=== PATIENT | male | born 1945 | race Caucasian/White ===

== ENCOUNTER 2019-06-08 14:07 | Emergency (ER) | payer MEDICARE ==
[~2019-06-08] VITALS: Ht 175.3 cm; Wt 78.6 kg
[2019-06-08 14:53] LABS: BASOPHILS % (AUTO) 0.3 % (0-1); EOSINOPHILS # (AUTO) 0.2 X10'3 (0-0.9); EOSINOPHILS % (AUTO) 3.5 % (0-6); HEMATOCRIT 39.3 % (42.0-52.0); HEMOGLOBIN 13.4 g/dl (14.0-17.9); LYMPHOCYTES # (AUTO) 0.7 X10'3 (1.1-4.8); LYMPHOCYTES % (AUTO) 13.5 % (21-51); MEAN CORPUSCULAR HEMOGLOBIN 31.2 PG (27.0-31.0); MEAN CORPUSCULAR HGB CONC 34.2 g/dL (33.0-36.5); MEAN CORPUSCULAR VOLUME 91.2 FL (78-98); MEAN PLATELET VOLUME 8.6 FL (7.4-10.4); MONOCYTES # (AUTO) 0.5 X10'3 (0-0.9); MONOCYTES % (AUTO) 10.3 % (2-12); NEUTROPHILS # (AUTO) 3.6 X10'3 (1.8-7.7); NEUTROPHILS % (AUTO) 72.4 % (42-75); PARTIAL THROMBOPLASTIN TIME 25 SECONDS (22-32); PLATELET COUNT 132 X10'3 (140-440); WHITE BLOOD COUNT 4.9 X10'3 (4.5-11.0)
[2019-06-08 14:59] LABS: ALANINE AMINOTRANSFERASE 27 U/L (12-78); ALBUMIN/GLOBULIN RATIO 1.4 (1.1-1.5); ALKALINE PHOSPHATASE 90 IU/L (46-116); ANION GAP 8 (8-16); ASPARTATE AMINO TRANSFERASE 24 U/L (10-37); BILIRUBIN,TOTAL 0.5 MG/DL (0.1-1.0); BLOOD UREA NITROGEN 17 MG/DL (7-18); BUN/CREATININE RATIO 11.6 (5.4-32.0); CALCIUM 8.8 MG/DL (8.5-10.1); CHLORIDE 107 MMOL/L (99-107); CREATININE 1.47 MG/DL (0.60-1.10); GLUCOSE 103 MG/DL (70-104); SODIUM 145 MMOL/L (135-145); TOTAL CARBON DIOXIDE 29.7 MMOL/L (24-32); TOTAL PROTEIN 6.9 G/DL (6.4-8.2); eGFR 47 ML/MIN
[2019-06-08 17:48] VITALS: BP 160/91
== END 2019-06-08 17:50 | disposition home or self-care (01) ==
LOC: ER 14:08
DX: R07.89 Other chest pain (principal); I10 Essential (primary) hypertension; Z95.0 Presence of cardiac pacemaker; Z88.8 Allergy status to other drugs, medicaments and biological substances
CPT/HCPCS: 36415; 71045; 80053; 84484; 85025; 85610; 85730; 93005; 99284

== ENCOUNTER 2023-04-01 11:05 | Day surgery (SDC) | payer MEDICARE ==
[~2023-04-01] VITALS: Ht 175.3 cm; Wt 77.1 kg
[2023-04-01] VITALS (7 sets, daily range): BP systolic 151–176; BP diastolic 60–86
[2023-04-01] MEDS ORDERED: normal saline 1000ml 1,000 ML IV SCH (11:30)
[2023-04-01] MEDS ORDERED: LORazepam 0.5 MG tablet PO ONE (11:30)
[2023-04-01] MEDS ORDERED: SPIR25TA5 PO (11:49)
[2023-04-01] MEDS ORDERED: PYRI60TA PO (11:49)
[2023-04-01] MEDS ORDERED: SACU1TAB7 PO (11:49)
[2023-04-01] MEDS ORDERED: FLO0.4C PO (11:49)
[2023-04-01] MEDS ORDERED: CHOL-4 PO (11:49)
[2023-04-01] MEDS ORDERED: ROSU20TA73 PO (11:49)
[2023-04-01] MEDS ORDERED: SERT-433 PO (11:49)
[2023-04-01] MEDS ORDERED: ADV50250 IH (11:49)
[2023-04-01] MEDS ORDERED: TERA5CAP4 PO (11:49)
[2023-04-01] MEDS ORDERED: PRED10TA PO (11:49)
[2023-04-01 12:23] LABS: BASOPHILS % (AUTO) 0.1 % (0-1); EOSINOPHILS # (AUTO) 0.1 X10'3 (0-0.9); EOSINOPHILS % (AUTO) 0.6 % (0-6); LYMPHOCYTES # (AUTO) 0.5 X10'3 (1.1-4.8); MEAN CORPUSCULAR HGB CONC 33.4 g/dL (33.0-36.5); MEAN CORPUSCULAR VOLUME 89.7 FL (78-98); MONOCYTES # (AUTO) 0.3 X10'3 (0-0.9); MONOCYTES % (AUTO) 4.4 % (2-12); NEUTROPHILS # (AUTO) 6.8 X10'3 (1.8-7.7); NEUTROPHILS % (AUTO) 87.9 % (42-75); PLATELET COUNT 108 X10'3 (140-440); RED BLOOD COUNT 4.02 X10'6 (4.70-6.10); RED CELL DISTRIBUTION WIDTH 14.2 % (11.5-14.5); WHITE BLOOD COUNT 7.7 X10'3 (4.5-11.0)
[2023-04-01] MEDS ORDERED: fentaNYL/PF 50MCG/1 ML 2ML syringe ONE (12:34)
[2023-04-01] MEDS ORDERED: LIDOcaine 1% 30ml preserv. free vial ONE (12:34)
[2023-04-01] MEDS ORDERED: iohexol 350MG/ML 100ml bottle IV ONE (12:34)
[2023-04-01] MEDS ORDERED: midazolam 1 mg/ML 2ml injection ONE ×2 (12:34→14:13)
[2023-04-01 12:37] LABS: ALBUMIN 3.8 G/DL (3.4-5.0); ANION GAP 13 (8-16); BLOOD UREA NITROGEN 42 MG/DL (7-18); BUN/CREATININE RATIO 18.4 (10.0-20.0); CALCIUM 8.9 MG/DL (8.5-10.1); CHLORIDE 107 MMOL/L (99-107); CREATININE 2.28 MG/DL (0.60-1.10); GLUCOSE 111 MG/DL (70-104); POTASSIUM 4.2 MMOL/L (3.5-5.1); SODIUM 145 MMOL/L (135-145); eGFR 28 ML/MIN
[2023-04-01] MEDS ORDERED: HYDROcodone/acetaminophen 10/325mg tab PO PRN (15:35)
[2023-04-01] MEDS ORDERED: HYDROcodone/acetaminophen 5mg/325mg tablet PO PRN (15:35)
[2023-04-02 06:33] LABS: ISTAT Hct MIX 32 %PCV (42-52); ISTAT O2 SATURATION MIX VENOUS 69 % (60-80); ISTAT SOURCE VEN
== END 2023-04-01 16:50 | disposition home or self-care (01) ==
LOC: SSTAY O 11:05
PROVIDERS: ATTEND Student in an Organized Health Care Education/Training Program
DX: I13.0 Hypertensive heart and chronic kidney disease with heart failure and stage 1 through stage 4 chronic kidney disease, or unspecified chronic kidney disease (principal); I50.22 Chronic systolic (congestive) heart failure; N18.30 Chronic kidney disease, stage 3 unspecified; I25.10 Atherosclerotic heart disease of native coronary artery without angina pectoris; G47.33 Obstructive sleep apnea (adult) (pediatric); I35.0 Nonrheumatic aortic (valve) stenosis; G70.00 Myasthenia gravis without (acute) exacerbation; E78.5 Hyperlipidemia, unspecified; Z79.899 Other long term (current) drug therapy; Z95.0 Presence of cardiac pacemaker
CPT/HCPCS: 33289; 36415; 76937; 80048; 85025; 85610; 99152; 99153; C2624; J1644; J2250; J3010; J3490; J7030; Q9967; 82803; 85014; 93005; A6258; A6402; C1751; C1769; C1894

== ENCOUNTER 2023-04-13 18:56 | Inpatient (IN) | payer MEDICARE ==
[~2023-04-13] VITALS: Ht 175.3 cm; Wt 77.2 kg
[~2023-04-13 18:56] MED LIST: ADV50250 IH; CHOL-4 PO; FLO0.4C PO; PRED10TA PO; PYRI60TA PO; ROSU20TA73 PO; SACU1TAB7 PO; SERT-433 PO; SPIR25TA5 PO; TERA5CAP4 PO
[2023-04-13] MEDS ORDERED: ASPI-1397 PO (21:08)
[2023-04-13] MEDS ORDERED: CLOP75TA34 PO (21:08)
[2023-04-13] MEDS ORDERED: cholecalciferol (vitamin D3) 1,000 unit (25mcg) tablet PO SCH (22:55)
[2023-04-13] MEDS: terazosin 5mg capsule PO SCH (23:13)
[2023-04-13] MEDS: ROSUVASTATIN CALCIUM 5 MG TABLET PO SCH (23:24)
[2023-04-14] MEDS ORDERED: potassium Cl 40MEQ/1/2NS 520ml 520 ML IV PRN (01:05)
[2023-04-14] MEDS ORDERED: mag hydrox/Alum hydrox/simeth 30ml oral suspension PO PRN (01:05)
[2023-04-14] MEDS ORDERED: magnesium hydroxide 30ml (MOM) UD suspension PO PRN (01:05)
[2023-04-14] MEDS ORDERED: acetaminophen 325mg tablet PO PRN (01:05)
[2023-04-14] MEDS ORDERED: ondansetron/PF 4mg/2ml inj IV PRN (01:05)
[2023-04-14] MEDS ORDERED: magnesium 4gm in 100ml NS 100 ML IV PRN (01:05)
[2023-04-14] MEDS ORDERED: potassium Cl 20 mEq SR tablet PO PRN (01:05)
[2023-04-14 03:20] LABS: BASOPHILS % (AUTO) 0 % (0-1); EOSINOPHILS % (AUTO) 0 % (0-6); HEMATOCRIT 32.8 % (42.0-52.0); LYMPHOCYTES # (AUTO) 0.3 X10'3 (1.1-4.8); LYMPHOCYTES % (AUTO) 2.3 % (21-51); MEAN CORPUSCULAR HEMOGLOBIN 30.1 PG (27.0-31.0); MEAN CORPUSCULAR HGB CONC 33.7 g/dL (33.0-36.5); MEAN CORPUSCULAR VOLUME 89.3 FL (78-98); MEAN PLATELET VOLUME 9.1 FL (7.4-10.4); MONOCYTES # (AUTO) 0.7 X10'3 (0-0.9); MONOCYTES % (AUTO) 4.9 % (2-12); NEUTROPHILS # (AUTO) 13.5 X10'3 (1.8-7.7); NEUTROPHILS % (AUTO) 92.8 % (42-75); PLATELET COUNT 111 X10'3 (140-440); RED BLOOD COUNT 3.67 X10'6 (4.70-6.10); RED CELL DISTRIBUTION WIDTH 14.1 % (11.5-14.5); WHITE BLOOD COUNT 14.5 X10'3 (4.5-11.0)
[2023-04-14 03:45] LABS: ALANINE AMINOTRANSFERASE 30 U/L (12-78); ALBUMIN 3.2 G/DL (3.4-5.0); ALBUMIN/GLOBULIN RATIO 1.1 (1.1-1.5); ALKALINE PHOSPHATASE 47 IU/L (46-116); ANION GAP 16 (8-16); ASPARTATE AMINO TRANSFERASE 25 U/L (10-37); BILIRUBIN,TOTAL 0.4 MG/DL (0.1-1.0); BLOOD UREA NITROGEN 58 MG/DL (7-18); BUN/CREATININE RATIO 15.7 (10.0-20.0); CHLORIDE 104 MMOL/L (99-107); CREATININE 3.69 MG/DL (0.60-1.10); GLUCOSE 104 MG/DL (70-104); MAGNESIUM 1.5 MG/DL (1.5-2.4); POTASSIUM 4.4 MMOL/L (3.5-5.1); SODIUM 137 MMOL/L (135-145); TOTAL CARBON DIOXIDE 17.4 MMOL/L (24-32); eGFR 16 ML/MIN
[2023-04-14 04:30] LABS: TOTAL CELLS COUNTED 100
[2023-04-14 04:31] LABS: ANISOCYTOSIS FEW; PLATELET ESTIMATE DECREASED; POIKILOCYTOSIS FEW
[2023-04-14 04:32] LABS: ELLIPTOCYTES 2+
--- NOTE | 2023-04-14 06:35 | NUR ---
Patient in room ED 6. I have received report from Scarlet in the ED and had the opportunity to ask questions and assume patient care.
--- NOTE | 2023-04-14 06:37 | NUR ---
Pt joseph area excoriated from frequent watery bowel movements. New order for placement of rectal tube.
--- NOTE | 2023-04-14 07:04 | NUR ---
Rectal tube inserted, tolerated well.
[2023-04-14] MEDS: K and/or MAG REPLACEMENT MC SCH ×2 (07:21→20:00)
[2023-04-14 07:30] VITALS: BP 133/54; PULSE 60; RESP 16; TEMP 98.1; O2SAT 97
[2023-04-14] MEDS ORDERED: methylPREDNISolone sod succ 125mg/2ml vial IV SCH (08:00)
[2023-04-14] MEDS ORDERED: docusate sod 100mg capsule PO SCH (08:00)
[2023-04-14 08:21] VITALS: RESP 16; O2SAT 95
[2023-04-14] MEDS: aspirin 81mg, enteric-coated 1 TAB TABLET.DR PO SCH (08:21)
[2023-04-14] MEDS: tamsulosin 0.4mg capsule PO SCH (08:21)
[2023-04-14] MEDS: cholecalciferol (vitamin D3) 1,000 unit (25mcg) tablet PO SCH (08:22)
[2023-04-14] MEDS: clopidogrel 75mg tablet PO SCH (08:22)
[2023-04-14] MEDS: sertraline 50mg tablet PO SCH (08:22)
[2023-04-14] MEDS: pyridostigmine br 60mg tablet PO SCH ×4 (09:14→20:10)
[2023-04-14] MEDS ORDERED: methylPREDNISolone sod succ/PF 40mg inj. IV ONE (09:15)
[2023-04-14] MEDS: sacubitril/valsartan 49mg-51mg tablet PO SCH ×2 (09:15→19:54)
[2023-04-14 10:00] VITALS: BP 143/56; PULSE 60; RESP 18; TEMP 97.8; O2SAT 98
[2023-04-14 12:29] LABS: C DIFF SPECIMEN=DIARRHEA? ACCEPTABLE; C DIFFICILE TOXINS A&B NEGATIVE (Neg)
[2023-04-14] MEDS: loperamide 2mg capsule PO PRN (16:34)
[2023-04-14 18:00] VITALS: BP 144/60; PULSE 62; RESP 16; TEMP 97.6; O2SAT 95
--- NOTE | 2023-04-14 18:16 | NUR ---
Problems reprioritized. Patient report given, questions answered & plan of care reviewed with
[2023-04-14] MEDS ORDERED: VANCOmycin 2,000MG in NS 500ml IV soln IV ONE (19:30)
[2023-04-14] MEDS ORDERED: vancomycin 1,750 MG in NS 350ml IV soln IV ONE (19:30)
[2023-04-14] MEDS ORDERED: vancomycin/NS 1 GM ADD-VANTAGE 250 ML IV PRN (19:35)
[2023-04-14] MEDS: sodium bicarbonate (8.4%) inj. 150 MEQ in dextrose 5%-water 1,000 ML IV SCH (19:45)
[2023-04-14] MEDS: piperacillin/tazo 3.375gm/50ml 50 ML IV SCH (19:48)
[2023-04-14] MEDS: methylPREDNISolone sod succ/PF 40mg inj. IV SCH (19:49)
[2023-04-14] MEDS: ROSUVASTATIN CALCIUM 5 MG TABLET PO SCH (19:54)
[2023-04-14] MEDS: terazosin 5mg capsule PO SCH (19:54)
[2023-04-14 20:00] VITALS: RESP 16; O2SAT 95
[2023-04-14 22:00] VITALS: BP 102/39; PULSE 63; RESP 16; TEMP 98; O2SAT 93
[2023-04-15 01:18] LABS: BASOPHILS % (AUTO) 0.4 % (0-1); EOSINOPHILS % (AUTO) 0 % (0-6); HEMATOCRIT 33.1 % (42.0-52.0); HEMOGLOBIN 11.4 g/dl (14.0-17.9); LYMPHOCYTES # (AUTO) 0.3 X10'3 (1.1-4.8); LYMPHOCYTES % (AUTO) 2.5 % (21-51); MEAN CORPUSCULAR HEMOGLOBIN 30.3 PG (27.0-31.0); MEAN CORPUSCULAR HGB CONC 34.4 g/dL (33.0-36.5); MEAN CORPUSCULAR VOLUME 88.1 FL (78-98); MEAN PLATELET VOLUME 8.8 FL (7.4-10.4); MONOCYTES # (AUTO) 0.1 X10'3 (0-0.9); MONOCYTES % (AUTO) 1.4 % (2-12); NEUTROPHILS # (AUTO) 9.9 X10'3 (1.8-7.7); NEUTROPHILS % (AUTO) 95.7 % (42-75); PLATELET COUNT 110 X10'3 (140-440); RED BLOOD COUNT 3.75 X10'6 (4.70-6.10); RED CELL DISTRIBUTION WIDTH 14.4 % (11.5-14.5); WHITE BLOOD COUNT 10.4 X10'3 (4.5-11.0)
[2023-04-15 01:24] LABS: ALANINE AMINOTRANSFERASE 30 U/L (12-78); ALBUMIN 3.2 G/DL (3.4-5.0); ALBUMIN/GLOBULIN RATIO 1.1 (1.1-1.5); ALKALINE PHOSPHATASE 48 IU/L (46-116); ANION GAP 17 (8-16); ASPARTATE AMINO TRANSFERASE 22 U/L (10-37); BILIRUBIN,TOTAL 0.4 MG/DL (0.1-1.0); BLOOD UREA NITROGEN 63 MG/DL (7-18); BUN/CREATININE RATIO 17.1 (10.0-20.0); C-REACTIVE PROTEIN 15.04 MG/DL (0.0-0.5); CALCIUM 8.1 MG/DL (8.5-10.1); CHLORIDE 104 MMOL/L (99-107); CREATININE 3.69 MG/DL (0.60-1.10); GLUCOSE 158 MG/DL (70-104); MAGNESIUM 1.8 MG/DL (1.5-2.4); POTASSIUM 3.5 MMOL/L (3.5-5.1); SODIUM 136 MMOL/L (135-145); TOTAL CARBON DIOXIDE 15.4 MMOL/L (24-32); TOTAL PROTEIN 6.1 G/DL (6.4-8.2); eGFR 16 ML/MIN
[2023-04-15] MEDS: piperacillin/tazo 3.375gm/50ml 50 ML IV SCH (03:53)
[2023-04-15 06:00] VITALS: BP 111/41; PULSE 58; RESP 16; TEMP 97.8; O2SAT 97
--- NOTE | 2023-04-15 06:38 | NUR ---
Problems reprioritized. Patient report given, questions answered & plan of care reviewed with COLLINS GONCALVES.
[2023-04-15] MEDS: methylPREDNISolone sod succ/PF 40mg inj. IV SCH ×2 (06:41→21:12)
--- NOTE | 2023-04-15 06:44 | NUR ---
Patient in room ORTHO 4008. I have received report from REJI Caceres and had the opportunity to ask questions and assume patient care.
[2023-04-15] MEDS: cholecalciferol (vitamin D3) 1,000 unit (25mcg) tablet PO SCH (07:30)
[2023-04-15] MEDS: pyridostigmine br 60mg tablet PO SCH ×4 (07:32→21:00)
[2023-04-15] MEDS: sertraline 50mg tablet PO SCH (07:32)
[2023-04-15] MEDS: aspirin 81mg, enteric-coated 1 TAB TABLET.DR PO SCH (07:32)
[2023-04-15] MEDS: clopidogrel 75mg tablet PO SCH (07:32)
[2023-04-15] MEDS: sacubitril/valsartan 49mg-51mg tablet PO SCH ×2 (07:32→21:14)
[2023-04-15] MEDS: tamsulosin 0.4mg capsule PO SCH (07:32)
[2023-04-15] MEDS: K and/or MAG REPLACEMENT MC SCH ×2 (07:34→20:00)
[2023-04-15 08:00] VITALS: RESP 16; O2SAT 97
[2023-04-15] MEDS: cefepime 1GM/NS ADD-VANTAGE 100 ML IV SCH (09:22)
[2023-04-15 09:57] LABS: CLARITY,URINE CLOUDY (Clear); COLOR,URINE STRAW (Yellow); GLUCOSE, URINE NEGATIVE (Neg); KETONES,URINE NEGATIVE (Neg); LEUKOCYTE ESTERASE ,URINE NEGATIVE (Neg); NITRITES, URINE NEGATIVE (Neg); OCCULT BLOOD,URINE TRACE-INTACT (Neg); PH,URINE 5.5 (4.8-8.0); PROTEIN,URINE TRACE mg/dl (Neg); UROBILINOGEN,URINE 0.2 E.U/dL (0.2-1.0)
[2023-04-15 10:11] LABS: UA COLLECTION TYPE URINAL
[2023-04-15 10:35] LABS: SQUAMOUS EPITHELIAL CELL,UR FEW /LPF (FEW)
[2023-04-15 10:37] LABS: AMORPHOUS URATES 1+
[2023-04-15 10:38] LABS: BACTERIA,URINE FEW /HPF (Neg); RBC,URINE 0-2 /HPF (0-2); WBC,URINE 0-4 /HPF (0-4)
[2023-04-15 11:00] VITALS: BP 124/36; PULSE 64; RESP 14; TEMP 97.8; O2SAT 99
[2023-04-15] MEDS: sodium bicarbonate (8.4%) inj. 150 MEQ in dextrose 5%-water 1,000 ML IV SCH ×2 (11:54→21:11)
[2023-04-15 18:00] VITALS: BP 156/59; PULSE 60; RESP 18; TEMP 98.8; O2SAT 97
--- NOTE | 2023-04-15 18:00 | NUR ---
I have reviewed and agree with the interventions, assessments, and documentation by COLLINS Hernandez.
--- NOTE | 2023-04-15 18:30 | NUR ---
Patient in room ORTHO 4008. I have received report from Mary GUADALUPE and had the opportunity to ask questions and assume patient care.
--- NOTE | 2023-04-15 18:49 | NUR ---
Problems reprioritized. Patient report given, questions answered & plan of care reviewed with REJI Camacho.
[2023-04-15 20:00] VITALS: RESP 16; O2SAT 97
[2023-04-15 20:17] LABS: TOTAL PROTEIN,URINE RANDOM 47.1 MG/DL
[2023-04-15 20:19] LABS: SODIUM,URINE RANDOM < 15 MEQ/L
[2023-04-15] MEDS: ROSUVASTATIN CALCIUM 5 MG TABLET PO SCH (21:15)
[2023-04-15] MEDS: terazosin 5mg capsule PO SCH (21:17)
--- NOTE | 2023-04-15 21:35 | NUR ---
Called MD for pain medication as still 06/24 to rectum and excoriated skin. New order for morphine 2mg IV q 4 hr.
[2023-04-15] MEDS: morphine 2 MG/ML inj. syringe IV PRN (21:43)
[2023-04-15 22:00] VITALS: BP 167/64; PULSE 61; RESP 16; TEMP 97.8; O2SAT 97
[2023-04-16] VITALS (7 sets, daily range): BP systolic 109–143; BP diastolic 54–74; PULSE 60–61; RESP 14–16; TEMP 97.4–97.6; O2SAT 97
[2023-04-16] MEDS: sodium bicarbonate (8.4%) inj. 150 MEQ in dextrose 5%-water 1,000 ML IV SCH (02:03)
[2023-04-16] MEDS: morphine 2 MG/ML inj. syringe IV PRN ×2 (02:22→10:38)
[2023-04-16 06:19] LABS: ALANINE AMINOTRANSFERASE 30 U/L (12-78); ALBUMIN 2.8 G/DL (3.4-5.0); ALBUMIN/GLOBULIN RATIO 1.2 (1.1-1.5); ALKALINE PHOSPHATASE 49 IU/L (46-116); ANION GAP 11 (8-16); ASPARTATE AMINO TRANSFERASE 30 U/L (10-37); BILIRUBIN,TOTAL 0.3 MG/DL (0.1-1.0); BLOOD UREA NITROGEN 63 MG/DL (7-18); BUN/CREATININE RATIO 20.7 (10.0-20.0); CALCIUM 7.5 MG/DL (8.5-10.1); CHLORIDE 103 MMOL/L (99-107); CREATININE 3.05 MG/DL (0.60-1.10); GLUCOSE 160 MG/DL (70-104); MAGNESIUM 1.7 MG/DL (1.5-2.4); SODIUM 137 MMOL/L (135-145); TOTAL CARBON DIOXIDE 23.3 MMOL/L (24-32); TOTAL PROTEIN 5.2 G/DL (6.4-8.2); VANCOMYCIN,RANDOM 16.9 UG/ML; eGFR 20 ML/MIN
[2023-04-16 06:32] LABS: BASOPHILS % (AUTO) 0.1 % (0-1); EOSINOPHILS % (AUTO) 0.1 % (0-6); HEMATOCRIT 31.9 % (42.0-52.0); LYMPHOCYTES # (AUTO) 0.2 X10'3 (1.1-4.8); LYMPHOCYTES % (AUTO) 2.5 % (21-51); MEAN CORPUSCULAR HEMOGLOBIN 29.9 PG (27.0-31.0); MEAN CORPUSCULAR HGB CONC 34.6 g/dL (33.0-36.5); MEAN CORPUSCULAR VOLUME 86.5 FL (78-98); MEAN PLATELET VOLUME 8.9 FL (7.4-10.4); MONOCYTES # (AUTO) 0.4 X10'3 (0-0.9); MONOCYTES % (AUTO) 5.1 % (2-12); NEUTROPHILS # (AUTO) 8.1 X10'3 (1.8-7.7); NEUTROPHILS % (AUTO) 92.2 % (42-75); PLATELET COUNT 98 X10'3 (140-440); RED BLOOD COUNT 3.69 X10'6 (4.70-6.10); RED CELL DISTRIBUTION WIDTH 13.7 % (11.5-14.5); WHITE BLOOD COUNT 8.7 X10'3 (4.5-11.0)
--- NOTE | 2023-04-16 06:46 | NUR ---
Called MD with critical K of 3.0. Protocol already in place and day nurse to start with replacement.
--- NOTE | 2023-04-16 06:48 | NUR ---
Problems reprioritized. Patient report given, questions answered & plan of care reviewed with Barbara GUADALUPE.
[2023-04-16 07:14] LABS: ANISOCYTOSIS 1+; ELLIPTOCYTES 2+; PLATELET ESTIMATE DECREASED; POIKILOCYTOSIS 1+
[2023-04-16] MEDS: K and/or MAG REPLACEMENT MC SCH ×2 (07:48→20:17)
[2023-04-16] MEDS: sertraline 50mg tablet PO SCH (07:53)
[2023-04-16] MEDS: cholecalciferol (vitamin D3) 1,000 unit (25mcg) tablet PO SCH (07:53)
[2023-04-16] MEDS: potassium Cl 20 mEq SR tablet PO PRN ×3 (07:54→17:56)
[2023-04-16] MEDS: clopidogrel 75mg tablet PO SCH (07:54)
[2023-04-16] MEDS: sacubitril/valsartan 49mg-51mg tablet PO SCH (07:54)
[2023-04-16] MEDS: aspirin 81mg, enteric-coated 1 TAB TABLET.DR PO SCH (07:54)
[2023-04-16] MEDS: tamsulosin 0.4mg capsule PO SCH (07:54)
[2023-04-16] MEDS: pyridostigmine br 60mg tablet PO SCH ×4 (07:55→20:25)
[2023-04-16] MEDS: methylPREDNISolone sod succ/PF 40mg inj. IV SCH ×2 (08:38→19:17)
[2023-04-16] MEDS: cefepime 1GM/NS ADD-VANTAGE 100 ML IV SCH (08:38)
[2023-04-16] MEDS ORDERED: vancomycin inj 500 MG in normal saline 100ml IV soln 100 ML IV SCH (10:00)
[2023-04-16] MEDS: loperamide 2mg capsule PO PRN ×2 (10:25→17:57)
[2023-04-16] MEDS ORDERED: POTASSIUM CL IV ONE ×3 (17:15)
[2023-04-16] MEDS ORDERED: [UNRECOGNIZED DRUG - OTHER] IV ONE ×3 (17:15)
[2023-04-16] MEDS ORDERED: SODIUM CHLORIDE 0.45% IV ONE ×3 (17:15)
[2023-04-16] MEDS ORDERED: WATER FOR INJECTION IV ONE ×3 (17:15)
--- NOTE | 2023-04-16 18:00 | NUR ---
I have reviewed and agree with interventions, assessments, and documentation by Barbara Bocanegra LVN.
[2023-04-16] MEDS: terazosin 5mg capsule PO SCH (20:22)
[2023-04-16] MEDS: metoclopramide 10mg tablet PO SCH (20:23)
[2023-04-16] MEDS: ROSUVASTATIN CALCIUM 5 MG TABLET PO SCH (20:23)
--- NOTE | 2023-04-16 22:35 | NUR ---
Patient in room ORTHO 4008. I have received report from kishore olivas and had the opportunity to ask questions and assume patient care.
--- NOTE | 2023-04-16 23:25 | NUR ---
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
--- NOTE | 2023-04-17 02:13 | NUR ---
Problems reprioritized. Patient report given, questions answered & plan of care reviewed with kayla olivas.
[2023-04-17 06:00] VITALS: BP 159/61; PULSE 58; RESP 16; TEMP 98.2; O2SAT 96
--- NOTE | 2023-04-17 06:20 | NUR ---
Patient in room ORTHO 4008. I have received report from Jelena MENDOZA and had the opportunity to ask questions and assume patient care.
--- NOTE | 2023-04-17 06:38 | NUR ---
Report to Sruthi No
[2023-04-17] MEDS: methylPREDNISolone sod succ/PF 40mg inj. IV SCH (07:58)
[2023-04-17 07:59] LABS: BASOPHILS % (AUTO) 0.2 % (0-1); EOSINOPHILS % (AUTO) 0.2 % (0-6); HEMATOCRIT 33.4 % (42.0-52.0); HEMOGLOBIN 11.3 g/dl (14.0-17.9); LYMPHOCYTES # (AUTO) 0.4 X10'3 (1.1-4.8); LYMPHOCYTES % (AUTO) 4.8 % (21-51); MEAN CORPUSCULAR HEMOGLOBIN 30.3 PG (27.0-31.0); MEAN CORPUSCULAR HGB CONC 33.9 g/dL (33.0-36.5); MEAN CORPUSCULAR VOLUME 89.5 FL (78-98); MEAN PLATELET VOLUME 9.2 FL (7.4-10.4); MONOCYTES # (AUTO) 0.6 X10'3 (0-0.9); NEUTROPHILS # (AUTO) 7.1 X10'3 (1.8-7.7); NEUTROPHILS % (AUTO) 87.8 % (42-75); PLATELET COUNT 110 X10'3 (140-440); RED BLOOD COUNT 3.74 X10'6 (4.70-6.10); RED CELL DISTRIBUTION WIDTH 13.8 % (11.5-14.5); WHITE BLOOD COUNT 8.1 X10'3 (4.5-11.0)
[2023-04-17 08:00] VITALS: RESP 16; O2SAT 96
[2023-04-17] MEDS: K and/or MAG REPLACEMENT MC SCH (08:00)
[2023-04-17 08:24] LABS: ALANINE AMINOTRANSFERASE 28 U/L (12-78); ALBUMIN 2.7 G/DL (3.4-5.0); ALBUMIN/GLOBULIN RATIO 1.1 (1.1-1.5); ALKALINE PHOSPHATASE 53 IU/L (46-116); ANION GAP 9 (8-16); ASPARTATE AMINO TRANSFERASE 26 U/L (10-37); BILIRUBIN,TOTAL 0.4 MG/DL (0.1-1.0); BLOOD UREA NITROGEN 52 MG/DL (7-18); BUN/CREATININE RATIO 22.4 (10.0-20.0); CALCIUM 7.6 MG/DL (8.5-10.1); CHLORIDE 106 MMOL/L (99-107); CREATININE 2.32 MG/DL (0.60-1.10); GLUCOSE 133 MG/DL (70-104); MAGNESIUM 1.8 MG/DL (1.5-2.4); POTASSIUM 5.2 MMOL/L (3.5-5.1); SODIUM 140 MMOL/L (135-145); TOTAL CARBON DIOXIDE 25.1 MMOL/L (24-32); TOTAL PROTEIN 5.2 G/DL (6.4-8.2); eGFR 27 ML/MIN
[2023-04-17] MEDS: cholecalciferol (vitamin D3) 1,000 unit (25mcg) tablet PO SCH (08:50)
[2023-04-17] MEDS: sertraline 50mg tablet PO SCH (08:50)
[2023-04-17] MEDS: tamsulosin 0.4mg capsule PO SCH (08:52)
[2023-04-17] MEDS: aspirin 81mg, enteric-coated 1 TAB TABLET.DR PO SCH (08:52)
[2023-04-17] MEDS: metoclopramide 10mg tablet PO SCH (08:52)
[2023-04-17] MEDS: clopidogrel 75mg tablet PO SCH (08:52)
[2023-04-17] MEDS: pyridostigmine br 60mg tablet PO SCH ×2 (08:57→11:56)
--- NOTE | 2023-04-17 09:52 | NUR ---
Dr. Castillo seen patient and stated that he is needing a follow up appt at the office in 1-2 months and CMET/CBC [id number] until appt. I called the office and spoke with his JULIA Bliss. She scheduled patient with [employer]LE[employer] TECHNICAL OPERATOR for 06/11/23 @9:00 check in @ 8:45. Patient lab order sent to [facility] Matos in [place].
[2023-04-17] MEDS: loperamide 2mg capsule PO PRN (11:54)
--- NOTE | 2023-04-17 13:00 | NUR ---
Patient discharged today. All discharged papers were explained and questions were answered. Patient IV removed by RN. All belongings were gathered and patient dressed. Patient was alert and appropriate for discharge. Patient was wheeled downstairs and into private vehicle.
--- NOTE | 2023-04-17 15:35 | NUR ---
DIRECTOR SPECIALTY documentation: I have reviewed and agree with all interventions, assessments performed and documented by Sruthi Rollins LVN .
[2023-04-19] MEDS ORDERED: VANCOMYCIN LEVEL IV ONE (09:30)
== END 2023-04-17 13:40 | disposition home or self-care (01) | DRG 56 ==
LOC: ER 18:57 → ED HOLD 04-14 01:10 → ORTHO 4S 04-14 07:31
PROVIDERS: ADMIT Family Medicine; ATTEND Family Medicine
DX: G70.01 Myasthenia gravis with (acute) exacerbation (principal); G93.41 Metabolic encephalopathy; N18.4 Chronic kidney disease, stage 4 (severe); E87.20 Acidosis, unspecified; I13.0 Hypertensive heart and chronic kidney disease with heart failure and stage 1 through stage 4 chronic kidney disease, or unspecified chronic kidney disease; I50.22 Chronic systolic (congestive) heart failure; R47.01 Aphasia; K52.1 Toxic gastroenteritis and colitis; N17.9 Acute kidney failure, unspecified; Z20.822 Contact with and (suspected) exposure to COVID-19; D72.825 Bandemia; D72.823 Leukemoid reaction; D72.829 Elevated white blood cell count, unspecified; E87.5 Hyperkalemia; N26.1 Atrophy of kidney (terminal); T44.0X5A Adverse effect of anticholinesterase agents, initial encounter; E86.0 Dehydration; Z79.51 Long term (current) use of inhaled steroids; Z79.82 Long term (current) use of aspirin; Y92.89 Other specified places as the place of occurrence of the external cause; Z95.0 Presence of cardiac pacemaker; Z79.899 Other long term (current) drug therapy
CPT/HCPCS: 36415; 70551; 76770; 80053; 80202; 81001; 82570; 83605; 83735; 84133; 84145; 84156; 84300; 84540; 85007; 85008; 85025; 86140; 87040; 87045; 87046; 87081; 87324; 87449; 87811; 92508; 92616; 97161; 97530; 97535; 99285; A4349; A6250; G0378; J0692; J2270; J2405; J2543; J2920; J3370; J3480; J3490; J7040; J7070

== ENCOUNTER 2024-10-28 04:43 | Inpatient (IN) | payer MEDICARE ==
[~2024-10-28] VITALS: Ht 175.3 cm; Wt 81.5 kg
[2024-10-28] VITALS (19 sets, daily range): BP systolic 93–182; BP diastolic 52–81; PULSE 74–103; RESP 15–21; O2SAT 94–100
[~2024-10-28 04:43] MED LIST changes: -ADV50250 IH; +ASPI-1397 PO; +CLOP75TA34 PO; +FLUT1BLS7 IH; -ROSU20TA73 PO; +ROSU20TA98 PO; -SPIR25TA5 PO
[2024-10-28] MEDS ORDERED: FURO-150 PO (05:30)
[2024-10-28] MEDS ORDERED: ERGO400C PO (05:30)
[2024-10-28] MEDS ORDERED: ATOR40TA PO (05:30)
[2024-10-28] MEDS ORDERED: SERT25TA PO (05:30)
[2024-10-28] MEDS ORDERED: EMPA10TA PO (05:30)
[2024-10-28] MEDS ORDERED: METO-395 PO (05:30)
[2024-10-28] MEDS ORDERED: LOSA-415 PO (05:30)
[2024-10-28] MEDS: HYDROmorphone inj. 0.5 MG/0.5 ML DISP.SYRIN IV ONE (05:41)
[2024-10-28 06:02] LABS: BASOPHILS % (AUTO) 0.1 % (0-1); EOSINOPHILS % (AUTO) 0.3 % (0-6); HEMATOCRIT 31.2 % (42.0-52.0); HEMOGLOBIN 10.7 g/dl (14.0-17.9); LYMPHOCYTES # (AUTO) 0.6 X10'3 (1.1-4.8); LYMPHOCYTES % (AUTO) 4.7 % (21-51); MEAN CORPUSCULAR HEMOGLOBIN 29.6 PG (27.0-31.0); MEAN CORPUSCULAR HGB CONC 34.3 g/dL (33.0-36.5); MEAN CORPUSCULAR VOLUME 86.5 FL (78-98); MONOCYTES # (AUTO) 0.6 X10'3 (0-0.9); MONOCYTES % (AUTO) 4.6 % (2-12); NEUTROPHILS # (AUTO) 11.3 X10'3 (1.8-7.7); NEUTROPHILS % (AUTO) 90.3 % (42-75); PLATELET COUNT 159 X10'3 (140-440); RED BLOOD COUNT 3.61 X10'6 (4.70-6.10); RED CELL DISTRIBUTION WIDTH 14.9 % (11.5-14.5); WHITE BLOOD COUNT 12.5 X10'3 (4.5-11.0)
[2024-10-28 06:05] LABS: BILIRUBIN,URINE NEGATIVE (Neg); CLARITY,URINE CLEAR (Clear); COLOR,URINE YELLOW (Yellow); GLUCOSE, URINE >=1000 mg/dl (Neg); KETONES,URINE NEGATIVE (Neg); LEUKOCYTE ESTERASE ,URINE NEGATIVE (Neg); NITRITES, URINE NEGATIVE (Neg); OCCULT BLOOD,URINE NEGATIVE (Neg); PROTEIN,URINE 30 mg/dl (Neg); UROBILINOGEN,URINE 0.2 E.U/dL (0.2-1.0)
[2024-10-28 06:10] LABS: ALBUMIN 2.9 G/DL (3.4-5.0); ANION GAP 8 (8-16); BLOOD UREA NITROGEN 22 MG/DL (7-18); BUN/CREATININE RATIO 11.2 (10.0-20.0); CALCIUM 7.8 MG/DL (8.5-10.1); CHLORIDE 109 MMOL/L (99-107); CREATININE 1.96 MG/DL (0.60-1.10); GLUCOSE 144 MG/DL (70-104); POTASSIUM 3.3 MMOL/L (3.5-5.1); SODIUM 143 MMOL/L (135-145); eCRCL 30 ML/MIN; eGFR 33 ML/MIN
[2024-10-28 06:11] LABS: UA COLLECTION TYPE CLN CATCH MIDSTREAM
[2024-10-28 06:12] LABS: BACTERIA,URINE 2+ /HPF (Neg); RBC,URINE 0-2 /HPF (0-2); SQUAMOUS EPITHELIAL CELL,UR FEW /LPF (FEW); WBC,URINE 0-4 /HPF (0-4)
[2024-10-28] MEDS ORDERED: ondansetron/PF 4mg/2ml inj IV PRN ×3 (08:10→17:00)
[2024-10-28] MEDS ORDERED: potassium Cl 20 mEq SR tablet PO PRN ×2 (08:10)
[2024-10-28] MEDS ORDERED: mag hydrox/Alum hydrox/simeth 30ml oral suspension PO PRN (08:10)
[2024-10-28] MEDS ORDERED: magnesium Cl slow-release 64mg tablet PO PRN (08:10)
[2024-10-28] MEDS ORDERED: magnesium sulf-water 4G/100mL 100 ML IV PRN (08:10)
[2024-10-28] MEDS ORDERED: acetaminophen 325mg tablet PO PRN (08:10)
[2024-10-28] MEDS ORDERED: potassium Cl 40MEQ/1/2NS 520ml 520 ML IV PRN (08:10)
[2024-10-28 09:12] LABS: MAGNESIUM 1.6 MG/DL (1.5-2.4); POTASSIUM 3.6 MMOL/L (3.5-5.1)
[2024-10-28] MEDS: normal saline 1000ml 1,000 ML IV SCH (09:38)
[2024-10-28 09:51] LABS: FREE T4 (FREE THYROXINE) 0.82 NG/DL (0.73-1.40); THYROID STIMULATING HORMONE 2.37 ulU/ml (0.34-4.50)
[2024-10-28 10:25] LABS: HEMOGLOBIN A1C 6.1 % (4.5-6.2)
[2024-10-28] MEDS ORDERED: LOSA50TA64 PO (11:09)
[2024-10-28] MEDS ORDERED: LOSA100T58 PO (11:09)
[2024-10-28] MEDS ORDERED: METO-411 PO (11:09)
[2024-10-28] MEDS ORDERED: ALBU8HFA INH (11:11)
[2024-10-28] MEDS: HYDROmorphone inj. 0.5 MG/0.5 ML DISP.SYRIN IV PRN (11:25)
[2024-10-28] MEDS: INSULIN LISPRO 100 UNIT/ML INSULN.PEN MULTI-DOSE SQ SCH (12:00)
[2024-10-28] MEDS ORDERED: proCHLORperazine 10 MG/2 ml inj IV PRN (13:50)
[2024-10-28] MEDS ORDERED: meperidine/PF 25mg/ml syringe IV PRN ×3 (13:50)
[2024-10-28] MEDS ORDERED: morphine 4 MG/ML inj SYRINge IV PRN (13:50)
[2024-10-28] MEDS ORDERED: fentaNYL /PF 50mcg/ml 5ml ampule ONE (14:32)
[2024-10-28] MEDS ORDERED: midazolam 1 mg/ML 2ml injection ONE (14:32)
[2024-10-28] MEDS ORDERED: propofol inj 20 ML IV ONE (14:32)
[2024-10-28] MEDS ORDERED: rocuronium 10mg/ml inj IV ONE (14:32)
[2024-10-28] MEDS ORDERED: sevoflurane 250ml liquid IH ONE (14:46)
[2024-10-28] MEDS ORDERED: ceFOXitin 1000 MG inj ONE ×2 (15:54)
[2024-10-28] MEDS ORDERED: BUPIVAcaine 2.5mg/ml inj 50ml vial (contains preservative) ONE (16:33)
[2024-10-28] MEDS ORDERED: BUPIVACAINE liposomal/PF 13.3 MG/ML 10mL vial IM ONE (16:34)
[2024-10-28] MEDS ORDERED: neostigmine methylsulfate 1 MG/ML 10ml vial ONE (17:00)
[2024-10-28] MEDS ORDERED: naloxone 0.4 mg/ml inj IV PRN (17:00)
[2024-10-28] MEDS ORDERED: glycopyrrolate 0.2mg/ml inj ONE (17:00)
[2024-10-28] MEDS ORDERED: sugammadex 200mg/2ml injection IV ONE (17:13)
[2024-10-28] MEDS ORDERED: meperidine/PF 100mg/ml syringe IV PRN ×2 (18:17→18:18)
[2024-10-28] MEDS: meperidine/PF 100mg/ml syringe IV PRN (18:45)
[2024-10-28] MEDS: ringers solution, lacted 1,000 ML IV SCH (19:29)
[2024-10-28] MEDS: piperacillin/tazo 3.375gm/50ml 50 ML IV SCH (19:31)
[2024-10-28 19:55] LABS: BASOPHILS % (AUTO) 0.2 % (0-1); EOSINOPHILS % (AUTO) 0.5 % (0-6); HEMATOCRIT 29.5 % (42.0-52.0); HEMOGLOBIN 10.1 g/dl (14.0-17.9); LYMPHOCYTES # (AUTO) 0.5 X10'3 (1.1-4.8); LYMPHOCYTES % (AUTO) 4.8 % (21-51); MEAN CORPUSCULAR HEMOGLOBIN 29.6 PG (27.0-31.0); MEAN CORPUSCULAR HGB CONC 34.4 g/dL (33.0-36.5); MEAN CORPUSCULAR VOLUME 86.3 FL (78-98); MEAN PLATELET VOLUME 7.9 FL (7.4-10.4); MONOCYTES # (AUTO) 0.3 X10'3 (0-0.9); MONOCYTES % (AUTO) 3.5 % (2-12); NEUTROPHILS # (AUTO) 8.9 X10'3 (1.8-7.7); PLATELET COUNT 158 X10'3 (140-440); RED BLOOD COUNT 3.42 X10'6 (4.70-6.10); RED CELL DISTRIBUTION WIDTH 14.9 % (11.5-14.5); WHITE BLOOD COUNT 9.8 X10'3 (4.5-11.0)
[2024-10-28] MEDS: K and/or MAG REPLACEMENT MC SCH (20:00)
[2024-10-28 20:22] LABS: ALANINE AMINOTRANSFERASE 20 U/L (12-78); ALBUMIN 2.4 G/DL (3.4-5.0); ALBUMIN/GLOBULIN RATIO 0.9 (1.1-1.5); ALKALINE PHOSPHATASE 54 IU/L (46-116); ANION GAP 7 (8-16); ASPARTATE AMINO TRANSFERASE 19 U/L (10-37); BILIRUBIN,TOTAL 0.6 MG/DL (0.1-1.0); BLOOD UREA NITROGEN 21 MG/DL (7-18); BUN/CREATININE RATIO 10.7 (10.0-20.0); CALCIUM 7.5 MG/DL (8.5-10.1); CHLORIDE 110 MMOL/L (99-107); CREATININE 1.96 MG/DL (0.60-1.10); GLUCOSE 116 MG/DL (70-104); MAGNESIUM 1.3 MG/DL (1.5-2.4); POTASSIUM 3.2 MMOL/L (3.5-5.1); SODIUM 142 MMOL/L (135-145); TOTAL CARBON DIOXIDE 24.7 MMOL/L (24-32); TOTAL PROTEIN 5.2 G/DL (6.4-8.2); eCRCL 30 ML/MIN; eGFR 33 ML/MIN
[2024-10-28] MEDS: morphine 2 MG/ML inj. syringe IV PRN (20:28)
[2024-10-28] MEDS: hydrALAZINE 20mg/ml inj. IV PRN (20:53)
[2024-10-28] MEDS: insulin glargine (Lantus) pen - multi-dose SQ SCH (21:00)
[2024-10-28] MEDS: acetaminophen 325mg tablet PO PRN (21:23)
[2024-10-28] MEDS: potassium Cl 40MEQ/270ML bag 270 ML IV PRN (21:23)
[2024-10-28] MEDS: magnesium sulf-water 2g/50mL 50 ML IV PRN (23:44)
[2024-10-29] VITALS (25 sets, daily range): BP systolic 105–153; BP diastolic 35–62; PULSE 60–79; RESP 9–18; O2SAT 89–99
[2024-10-29] MEDS: morphine 2 MG/ML inj. syringe IV PRN (01:11)
[2024-10-29] MEDS: pantoprazole 40 MG vial IV ONE (03:17)
[2024-10-29 04:22] LABS: BASOPHILS % (AUTO) 0.1 % (0-1); EOSINOPHILS % (AUTO) 0.2 % (0-6); HEMATOCRIT 29.7 % (42.0-52.0); LYMPHOCYTES # (AUTO) 0.6 X10'3 (1.1-4.8); LYMPHOCYTES % (AUTO) 3.9 % (21-51); MEAN CORPUSCULAR HEMOGLOBIN 29.4 PG (27.0-31.0); MEAN CORPUSCULAR HGB CONC 33.8 g/dL (33.0-36.5); MEAN CORPUSCULAR VOLUME 87.1 FL (78-98); MEAN PLATELET VOLUME 8.3 FL (7.4-10.4); MONOCYTES # (AUTO) 0.7 X10'3 (0-0.9); MONOCYTES % (AUTO) 4.5 % (2-12); NEUTROPHILS # (AUTO) 13.6 X10'3 (1.8-7.7); NEUTROPHILS % (AUTO) 91.3 % (42-75); PLATELET COUNT 168 X10'3 (140-440); RED BLOOD COUNT 3.41 X10'6 (4.70-6.10); RED CELL DISTRIBUTION WIDTH 15.1 % (11.5-14.5); WHITE BLOOD COUNT 14.9 X10'3 (4.5-11.0)
[2024-10-29 04:30] LABS: ALBUMIN 2.4 G/DL (3.4-5.0); ANION GAP 9 (8-16); BLOOD UREA NITROGEN 21 MG/DL (7-18); BUN/CREATININE RATIO 11.4 (10.0-20.0); CALCIUM 7.8 MG/DL (8.5-10.1); CHLORIDE 113 MMOL/L (99-107); CREATININE 1.84 MG/DL (0.60-1.10); GLUCOSE 94 MG/DL (70-104); MAGNESIUM 2.3 MG/DL (1.5-2.4); POTASSIUM 3.8 MMOL/L (3.5-5.1); SODIUM 147 MMOL/L (135-145); TOTAL CARBON DIOXIDE 25.4 MMOL/L (24-32); eCRCL 32 ML/MIN; eGFR 36 ML/MIN
[2024-10-29] MEDS: pantoprazole 40 MG vial IV SCH (07:41)
[2024-10-29] MEDS: PCA WASTE DOCUMENTATION 1 MG ML MC SCH (11:20)
[2024-10-29] MEDS ORDERED: naloxone 0.4 mg/ml inj IV PRN (11:20)
[2024-10-29] MEDS: HYDROmorph/NS 0.2 mg/ml PCA 100 ML IV SCH (11:58)
[2024-10-29] MEDS ORDERED: polyvinyl alcohol eye drops 15ML BOTTLE EACHEYE PRN (14:45)
[2024-10-30] VITALS (20 sets, daily range): BP systolic 144–187; BP diastolic 42–83; PULSE 64–92; RESP 9–24; TEMP 97.2–98; O2SAT 93–98
[2024-10-30 02:45] LABS: BASOPHILS % (AUTO) 0.1 % (0-1); EOSINOPHILS # (AUTO) 0.1 X10'3 (0-0.9); EOSINOPHILS % (AUTO) 1.1 % (0-6); HEMOGLOBIN 9.2 g/dl (14.0-17.9); LYMPHOCYTES # (AUTO) 0.4 X10'3 (1.1-4.8); LYMPHOCYTES % (AUTO) 4.1 % (21-51); MEAN CORPUSCULAR HEMOGLOBIN 29.1 PG (27.0-31.0); MEAN CORPUSCULAR HGB CONC 32.9 g/dL (33.0-36.5); MEAN CORPUSCULAR VOLUME 88.4 FL (78-98); MONOCYTES # (AUTO) 0.5 X10'3 (0-0.9); MONOCYTES % (AUTO) 4.9 % (2-12); NEUTROPHILS # (AUTO) 9.7 X10'3 (1.8-7.7); NEUTROPHILS % (AUTO) 89.8 % (42-75); PLATELET COUNT 129 X10'3 (140-440); RED BLOOD COUNT 3.17 X10'6 (4.70-6.10); RED CELL DISTRIBUTION WIDTH 15.9 % (11.5-14.5); WHITE BLOOD COUNT 10.9 X10'3 (4.5-11.0)
[2024-10-30 02:52] LABS: ALBUMIN 2.1 G/DL (3.4-5.0); ANION GAP 8 (8-16); BLOOD UREA NITROGEN 25 MG/DL (7-18); BUN/CREATININE RATIO 11.2 (10.0-20.0); CALCIUM 8.2 MG/DL (8.5-10.1); CHLORIDE 114 MMOL/L (99-107); CREATININE 2.24 MG/DL (0.60-1.10); GLUCOSE 93 MG/DL (70-104); MAGNESIUM 2.1 MG/DL (1.5-2.4); POTASSIUM 3.8 MMOL/L (3.5-5.1); SODIUM 146 MMOL/L (135-145); TOTAL CARBON DIOXIDE 23.7 MMOL/L (24-32); eCRCL 26 ML/MIN; eGFR 28 ML/MIN
[2024-10-30] MEDS: HYDROmorph/NS 0.2 mg/ml PCA 100 ML IV SCH (03:00)
[2024-10-30] MEDS ORDERED: ipratropium/albuterol 3ml nebule NEB PRN (23:10)
[2024-10-30 23:28] LABS: POTASSIUM 3.7 MMOL/L (3.5-5.1)
[2024-10-31] VITALS (13 sets, daily range): BP systolic 119–160; BP diastolic 54–84; PULSE 57–104; RESP 18–24; TEMP 97.7–98.2; O2SAT 95–100
[2024-10-31] MEDS ORDERED: potassium Cl 40MEQ/270ML bag 250 ML IV PRN (00:35)
[2024-10-31] MEDS ORDERED: magnesium sulf-water 2g/50mL 50 ML IV PRN (00:35)
[2024-10-31] MEDS ORDERED: potassium Cl 20 mEq SR tablet PO PRN (00:35)
[2024-10-31] MEDS ORDERED: magnesium sulf-water 4G/100mL 100 ML IV PRN (00:35)
[2024-10-31] MEDS ORDERED: potassium Cl 20mEq/100mL bag 100 ML IV PRN (00:35)
[2024-10-31] MEDS: potassium Cl 40MEQ/1/2NS 520ml 520 ML IV PRN (02:41)
[2024-10-31 02:51] LABS: ALBUMIN 2.2 G/DL (3.4-5.0); ANION GAP 12 (8-16); BLOOD UREA NITROGEN 29 MG/DL (7-18); BUN/CREATININE RATIO 11.9 (10.0-20.0); CALCIUM 8.8 MG/DL (8.5-10.1); CHLORIDE 117 MMOL/L (99-107); CREATININE 2.43 MG/DL (0.60-1.10); GLUCOSE 82 MG/DL (70-104); MAGNESIUM 2.1 MG/DL (1.5-2.4); POTASSIUM 3.6 MMOL/L (3.5-5.1); SODIUM 151 MMOL/L (135-145); TOTAL CARBON DIOXIDE 21.6 MMOL/L (24-32); eCRCL 24 ML/MIN; eGFR 26 ML/MIN
[2024-10-31] MEDS: ipratropium/albuterol 3ml nebule NEB SCH (03:11)
[2024-10-31] MEDS: EMPAGLIFLOZIN 10 MG TABLET PO SCH (08:50)
[2024-10-31] MEDS: aspirin 81mg, enteric-coated 1 TAB TABLET.DR PO SCH (08:50)
[2024-10-31] MEDS: furosemide 20 MG/2 ML vial IV SCH (09:06)
[2024-10-31 12:32] LABS: BASOPHILS % (AUTO) 0.1 % (0-1); EOSINOPHILS # (AUTO) 0.1 X10'3 (0-0.9); EOSINOPHILS % (AUTO) 0.7 % (0-6); HEMATOCRIT 27.7 % (42.0-52.0); HEMOGLOBIN 9.6 g/dl (14.0-17.9); LYMPHOCYTES # (AUTO) 0.2 X10'3 (1.1-4.8); LYMPHOCYTES % (AUTO) 2.5 % (21-51); MEAN CORPUSCULAR HEMOGLOBIN 30.2 PG (27.0-31.0); MEAN CORPUSCULAR HGB CONC 34.7 g/dL (33.0-36.5); MEAN CORPUSCULAR VOLUME 87.1 FL (78-98); MEAN PLATELET VOLUME 8.1 FL (7.4-10.4); MONOCYTES # (AUTO) 0.5 X10'3 (0-0.9); MONOCYTES % (AUTO) 5.3 % (2-12); NEUTROPHILS # (AUTO) 8.8 X10'3 (1.8-7.7); NEUTROPHILS % (AUTO) 91.4 % (42-75); PLATELET COUNT 167 X10'3 (140-440); RED BLOOD COUNT 3.18 X10'6 (4.70-6.10); RED CELL DISTRIBUTION WIDTH 15.7 % (11.5-14.5); WHITE BLOOD COUNT 9.7 X10'3 (4.5-11.0)
[2024-10-31] MEDS: PERFLUTREN PROTEIN-A MICROSPHR (Optison) 0.22 MG/ML 3ML VIAL IV ONE (12:43)
[2024-10-31] MEDS: dextrose 5%-lactated ringers 1,000 ML IV SCH (12:45)
[2024-10-31] MEDS ORDERED: albuterol 2.5 MG/3 ML nebule NEB PRN (13:15)
[2024-10-31] MEDS: potassium CL 10mEq/100ml bag 100 ML IV PRN (13:45)
[2024-10-31] MEDS: pyridostigmine br 60mg tablet PO SCH (13:50)
[2024-10-31] MEDS: HYDROcodone/acetaminophen 10/325mg tab PO PRN (16:48)
[2024-10-31] MEDS: terazosin 5mg capsule PO SCH (23:26)
[2024-10-31] MEDS: metoprolol tartrate 25mg tablet PO SCH (23:27)
[2024-11-01] VITALS (9 sets, daily range): BP systolic 129–167; BP diastolic 45–75; PULSE 12–84; RESP 16–21; TEMP 96.5–98.3; O2SAT 94–98
[2024-11-01 01:30] LABS: CREATININE 2.82 MG/DL (0.60-1.10); SODIUM 146 MMOL/L (135-145); eCRCL 21 ML/MIN; eGFR 22 ML/MIN
[2024-11-01 01:31] LABS: POTASSIUM 2.9 MMOL/L (3.5-5.1)
[2024-11-01 07:31] LABS: BASOPHILS % (AUTO) 0.1 % (0-1); EOSINOPHILS # (AUTO) 0.2 X10'3 (0-0.9); EOSINOPHILS % (AUTO) 3.8 % (0-6); HEMATOCRIT 24.8 % (42.0-52.0); HEMOGLOBIN 8.2 g/dl (14.0-17.9); LYMPHOCYTES # (AUTO) 0.3 X10'3 (1.1-4.8); LYMPHOCYTES % (AUTO) 6.9 % (21-51); MEAN CORPUSCULAR HEMOGLOBIN 28.8 PG (27.0-31.0); MEAN CORPUSCULAR HGB CONC 33.2 g/dL (33.0-36.5); MEAN CORPUSCULAR VOLUME 86.7 FL (78-98); MEAN PLATELET VOLUME 7.6 FL (7.4-10.4); MONOCYTES # (AUTO) 0.3 X10'3 (0-0.9); MONOCYTES % (AUTO) 6.6 % (2-12); NEUTROPHILS # (AUTO) 3.5 X10'3 (1.8-7.7); NEUTROPHILS % (AUTO) 82.6 % (42-75); PLATELET COUNT 126 X10'3 (140-440); RED BLOOD COUNT 2.85 X10'6 (4.70-6.10); RED CELL DISTRIBUTION WIDTH 15.7 % (11.5-14.5); WHITE BLOOD COUNT 4.2 X10'3 (4.5-11.0)
[2024-11-01] MEDS ORDERED: metoprolol succinate 25mg (24-HOUR) SR. Tablet PO SCH (08:00)
[2024-11-01] MEDS ORDERED: losartan 50mg tablet PO SCH (08:00)
[2024-11-01] MEDS ORDERED: aspirin 81mg, enteric-coated 1 TAB TABLET.DR PO SCH (08:00)
[2024-11-01] MEDS: prednisone 10mg tablet PO SCH (08:08)
[2024-11-01] MEDS: sertraline 50mg tablet PO SCH (08:08)
[2024-11-01] MEDS: atorvastatin 20mg tablet PO SCH (08:08)
[2024-11-01 08:41] LABS: ALBUMIN 1.8 G/DL (3.4-5.0); ANION GAP 10 (8-16); BLOOD UREA NITROGEN 31 MG/DL (7-18); CALCIUM 8.3 MG/DL (8.5-10.1); CHLORIDE 116 MMOL/L (99-107); CREATININE 2.82 MG/DL (0.60-1.10); GLUCOSE 131 MG/DL (70-104); MAGNESIUM 1.8 MG/DL (1.5-2.4); POTASSIUM 3.4 MMOL/L (3.5-5.1); SODIUM 147 MMOL/L (135-145); TOTAL CARBON DIOXIDE 21.1 MMOL/L (24-32); eCRCL 21 ML/MIN; eGFR 22 ML/MIN
[2024-11-01] MEDS: spironolactone 25 MG tablet PO SCH (11:06)
[2024-11-01] MEDS: dextrose 5%-lactated ringers 1,000 ML IV SCH (14:19)
[2024-11-01] MEDS: piperacillin/tazo 3.375gm/50ml 50 ML IV SCH (16:00)
[2024-11-01] MEDS ORDERED: linezolid 600mg/300ml PREMIX 300 ML IV SCH (20:00)
[2024-11-01] MEDS: heparin, porcine 5000 units/ml vial SQ SCH (21:28)
[2024-11-02] VITALS (14 sets, daily range): BP systolic 106–160; BP diastolic 49–66; PULSE 55–80; RESP 12–20; TEMP 97.3–98.1; O2SAT 95–98
[2024-11-02 07:11] LABS: BASOPHILS % (AUTO) 0.3 % (0-1); EOSINOPHILS # (AUTO) 0.1 X10'3 (0-0.9); EOSINOPHILS % (AUTO) 2.4 % (0-6); HEMATOCRIT 25.8 % (42.0-52.0); HEMOGLOBIN 8.6 g/dl (14.0-17.9); LYMPHOCYTES # (AUTO) 0.4 X10'3 (1.1-4.8); LYMPHOCYTES % (AUTO) 8.2 % (21-51); MEAN CORPUSCULAR HEMOGLOBIN 28.9 PG (27.0-31.0); MEAN CORPUSCULAR HGB CONC 33.6 g/dL (33.0-36.5); MEAN CORPUSCULAR VOLUME 86.1 FL (78-98); MEAN PLATELET VOLUME 7.7 FL (7.4-10.4); MONOCYTES # (AUTO) 0.3 X10'3 (0-0.9); MONOCYTES % (AUTO) 7.8 % (2-12); NEUTROPHILS # (AUTO) 3.6 X10'3 (1.8-7.7); NEUTROPHILS % (AUTO) 81.3 % (42-75); PLATELET COUNT 129 X10'3 (140-440); RED BLOOD COUNT 2.99 X10'6 (4.70-6.10); RED CELL DISTRIBUTION WIDTH 15.7 % (11.5-14.5); WHITE BLOOD COUNT 4.4 X10'3 (4.5-11.0)
[2024-11-02 07:35] LABS: ANION GAP 10 (8-16); BLOOD UREA NITROGEN 28 MG/DL (7-18); BUN/CREATININE RATIO 9.6 (10.0-20.0); CALCIUM 8.3 MG/DL (8.5-10.1); CHLORIDE 113 MMOL/L (99-107); CREATININE 2.91 MG/DL (0.60-1.10); GLUCOSE 119 MG/DL (70-104); MAGNESIUM 1.7 MG/DL (1.5-2.4); POTASSIUM 3.2 MMOL/L (3.5-5.1); SODIUM 145 MMOL/L (135-145); TOTAL CARBON DIOXIDE 21.6 MMOL/L (24-32); eCRCL 20 ML/MIN; eGFR 21 ML/MIN
[2024-11-02] MEDS ORDERED: levoFLOXACIN-Levaquin 500mg/D5 100 ML IV SCH (08:00)
[2024-11-02] MEDS ORDERED: albuterol 2.5 MG/3 ML nebule NEB PRN ×2 (08:55→14:55)
[2024-11-02] MEDS: prednisone 10mg tablet PO SCH (09:02)
[2024-11-02] MEDS: metoprolol succinate 25mg (24-HOUR) SR. Tablet PO SCH (09:03)
[2024-11-02] MEDS: losartan 25mg tablet PO SCH (09:03)
[2024-11-02] MEDS: sertraline 25mg tablet PO SCH (09:22)
[2024-11-02] MEDS: albuterol 2.5 MG/3 ML nebule NEB ONE (09:31)
[2024-11-02] MEDS: ipratropium/albuterol 3ml nebule NEB SCH (16:07)
[2024-11-02] MEDS: predniSONE 20 mg tablet PO ONE (16:33)
[2024-11-03] VITALS (8 sets, daily range): BP systolic 131–148; BP diastolic 53–67; PULSE 60–84; RESP 16–18; TEMP 96–97.5; O2SAT 93–99
[2024-11-03 08:40] LABS: BASOPHILS % (AUTO) 0 % (0-1); EOSINOPHILS % (AUTO) 0.1 % (0-6); HEMATOCRIT 25.2 % (42.0-52.0); HEMOGLOBIN 8.2 g/dl (14.0-17.9); LYMPHOCYTES # (AUTO) 0.2 X10'3 (1.1-4.8); LYMPHOCYTES % (AUTO) 4.1 % (21-51); MEAN CORPUSCULAR HEMOGLOBIN 28.3 PG (27.0-31.0); MEAN CORPUSCULAR HGB CONC 32.6 g/dL (33.0-36.5); MEAN CORPUSCULAR VOLUME 86.8 FL (78-98); MONOCYTES # (AUTO) 0.2 X10'3 (0-0.9); MONOCYTES % (AUTO) 4.9 % (2-12); NEUTROPHILS % (AUTO) 90.9 % (42-75); PLATELET COUNT 118 X10'3 (140-440); RED CELL DISTRIBUTION WIDTH 15.9 % (11.5-14.5); WHITE BLOOD COUNT 4.4 X10'3 (4.5-11.0)
[2024-11-03 09:04] LABS: ALANINE AMINOTRANSFERASE 19 U/L (12-78); ALBUMIN/GLOBULIN RATIO 0.6 (1.1-1.5); ALKALINE PHOSPHATASE 54 IU/L (46-116); ANION GAP 9 (8-16); ASPARTATE AMINO TRANSFERASE 17 U/L (10-37); BILIRUBIN,TOTAL 0.4 MG/DL (0.1-1.0); BLOOD UREA NITROGEN 33 MG/DL (7-18); BUN/CREATININE RATIO 12.7 (10.0-20.0); CALCIUM 8.3 MG/DL (8.5-10.1); CHLORIDE 114 MMOL/L (99-107); GLUCOSE 127 MG/DL (70-104); POTASSIUM 3.8 MMOL/L (3.5-5.1); SODIUM 146 MMOL/L (135-145); TOTAL CARBON DIOXIDE 23.2 MMOL/L (24-32); TOTAL PROTEIN 5.3 G/DL (6.4-8.2); eCRCL 23 ML/MIN; eGFR 24 ML/MIN
[2024-11-03] MEDS: predniSONE 20 mg tablet PO SCH (09:22)
[2024-11-03] MEDS ORDERED: amox tr/potassium clavulanate 500mg/125mg TAB PO SCH (17:30)
== END 2024-11-03 16:40 | disposition swing bed (61) | DRG 329 ==
LOC: ER 04:44 → ED HOLD 08:12 → CICU 2S 19:16 → PCU 3S 10-30 11:30
PROVIDERS: ADMIT Family Medicine; ATTEND Family Medicine
PROC: 0DB80ZZ Excision of Small Intestine, Open Approach (ICD-10-PCS; principal; 2024-10-28 14:46)
DX: K63.1 Perforation of intestine (nontraumatic) (principal); I21.A1 Myocardial infarction type 2; K65.9 Peritonitis, unspecified; E87.0 Hyperosmolality and hypernatremia; R65.10 Systemic inflammatory response syndrome (SIRS) of non-infectious origin without acute organ dysfunction; I13.0 Hypertensive heart and chronic kidney disease with heart failure and stage 1 through stage 4 chronic kidney disease, or unspecified chronic kidney disease; N17.9 Acute kidney failure, unspecified; N18.4 Chronic kidney disease, stage 4 (severe); I50.22 Chronic systolic (congestive) heart failure; J44.1 Chronic obstructive pulmonary disease with (acute) exacerbation; G70.00 Myasthenia gravis without (acute) exacerbation; G47.00 Insomnia, unspecified; F32.A Depression, unspecified; I35.0 Nonrheumatic aortic (valve) stenosis; G47.33 Obstructive sleep apnea (adult) (pediatric); E78.5 Hyperlipidemia, unspecified; E11.22 Type 2 diabetes mellitus with diabetic chronic kidney disease; I27.20 Pulmonary hypertension, unspecified; Z88.8 Allergy status to other drugs, medicaments and biological substances; Z79.82 Long term (current) use of aspirin; Z79.01 Long term (current) use of anticoagulants; Z79.899 Other long term (current) drug therapy; Z86.73 Personal history of transient ischemic attack (TIA), and cerebral infarction without residual deficits; Z95.0 Presence of cardiac pacemaker
CPT/HCPCS: 36415; 71045; 80048; 80053; 81001; 82565; 82948; 83036; 83605; 83690; 83735; 83880; 84132; 84295; 84439; 84443; 84484; 85025; 86885; 86900; 86901; 87070; 87075; 87077; 87081; 87186; 88307; 93005; 93306; 94640; 94760; 97110; 97116; 97162; 97530; 97535; 99291; A4314; A4615; A4618; A6213; A6258; A6402; A6407; A6449; A6590; A7000; G0378; J0360; J0666; J0694; J1171; J1644; J1815; J1940; J2175; J2250; J2270; J2405; J2470; J2543; J2704; J2710; J3010; J3480; J3490; J7030; J7040; J7050; J7120; J7121; J7512

== ENCOUNTER 2024-12-12 12:16 | Inpatient (IN) | payer MEDICARE ==
[~2024-12-12] VITALS: Ht 175.3 cm; Wt 97.2 kg
[~2024-12-12 12:16] MED LIST changes: +ALBU8HFA INH; +ATOR40TA PO; -CHOL-4 PO; -CLOP75TA34 PO; +EMPA10TA PO; +ERGO400C PO; -FLO0.4C PO; -FLUT1BLS7 IH; +FURO-150 PO; +LOSA50TA64 PO; +METO-411 PO; -ROSU20TA98 PO; -SACU1TAB7 PO
[2024-12-12] MEDS ORDERED: ATOR20TA PO (12:50)
[2024-12-12] MEDS ORDERED: METO-539 PO (12:54)
[2024-12-12] MEDS ORDERED: FURO40TA4 PO (12:54)
[2024-12-12] MEDS ORDERED: APIX2.5T PO (12:54)
[2024-12-12 13:49] LABS: BASOPHILS % (AUTO) 0 % (0-1); EOSINOPHILS % (AUTO) 0.1 % (0-6); HEMATOCRIT 35.5 % (42.0-52.0); HEMOGLOBIN 11.4 g/dl (14.0-17.9); LYMPHOCYTES # (AUTO) 0.7 X10'3 (1.1-4.8); LYMPHOCYTES % (AUTO) 3.9 % (21-51); MEAN CORPUSCULAR HEMOGLOBIN 28.5 PG (27.0-31.0); MEAN CORPUSCULAR HGB CONC 32.3 g/dL (33.0-36.5); MEAN CORPUSCULAR VOLUME 88.2 FL (78-98); MEAN PLATELET VOLUME 9.1 FL (7.4-10.4); MONOCYTES # (AUTO) 0.7 X10'3 (0-0.9); MONOCYTES % (AUTO) 4.2 % (2-12); NEUTROPHILS # (AUTO) 15.9 X10'3 (1.8-7.7); NEUTROPHILS % (AUTO) 91.8 % (42-75); PLATELET COUNT 110 X10'3 (140-440); RED BLOOD COUNT 4.02 X10'6 (4.70-6.10); RED CELL DISTRIBUTION WIDTH 17.8 % (11.5-14.5); WHITE BLOOD COUNT 17.3 X10'3 (4.5-11.0)
[2024-12-12 13:50] LABS: ALBUMIN 3.2 G/DL (3.4-5.0); ANION GAP 10 (8-16); BLOOD UREA NITROGEN 35 MG/DL (7-18); BUN/CREATININE RATIO 15.9 (10.0-20.0); CALCIUM 8.4 MG/DL (8.5-10.1); CHLORIDE 108 MMOL/L (99-107); GLUCOSE 117 MG/DL (70-104); POTASSIUM 4.5 MMOL/L (3.5-5.1); SODIUM 145 MMOL/L (135-145); eCRCL 27 ML/MIN; eGFR 29 ML/MIN
[2024-12-12] MEDS: ringers solution, lacted 1,000 ML IV ONE (14:36)
[2024-12-12] MEDS: ondansetron/PF 4mg/2ml inj IV ONE (14:45)
[2024-12-12] MEDS: diatr meglu/diatrizoate 30ml oral sol.-(3 dose) bottle PO SCH (14:50)
[2024-12-12] MEDS ORDERED: iohexol 300mg/ml 100ml inj. ONE (15:40)
[2024-12-12] MEDS ORDERED: potassium Cl 20 mEq SR tablet PO PRN ×2 (17:05)
[2024-12-12] MEDS ORDERED: potassium Cl 40MEQ/1/2NS 520ml 520 ML IV PRN (17:05)
[2024-12-12] MEDS ORDERED: magnesium sulf-water 4G/100mL 100 ML IV PRN (17:05)
[2024-12-12] MEDS ORDERED: magnesium Cl slow-release 64mg tablet PO PRN (17:05)
[2024-12-12] MEDS ORDERED: magnesium sulf-water 2g/50mL 50 ML IV PRN (17:05)
[2024-12-12] MEDS ORDERED: acetaminophen 325mg tablet PO PRN (17:05)
[2024-12-12] MEDS: CefTRIAXone 2gm/D5W 50ml BAG 50 ML IV SCH (17:36)
[2024-12-12] MEDS: normal saline 1000ml 1,000 ML IV SCH (17:40)
[2024-12-12 17:46] LABS: LIPASE 196 U/L (16-77)
[2024-12-12] MEDS: ondansetron/PF 4mg/2ml inj IV PRN (18:01)
[2024-12-12] MEDS: morphine 2 MG/ML inj. syringe IV PRN ×2 (18:05→22:03)
[2024-12-12 18:06] LABS: INR 1.2 INR; PROTHROMBIN TIME 12.4 SECONDS (9.0-12.0)
[2024-12-12] MEDS ORDERED: heparin, porcine 5000 units/ml vial SQ SCH (20:00)
[2024-12-13] VITALS (24 sets, daily range): BP systolic 71–157; BP diastolic 49–82; PULSE 62–86; RESP 12–44; TEMP 97.5–98.3; O2SAT 90–98
[2024-12-13] MEDS ORDERED: ONDA-243 PO (05:22)
[2024-12-13] MEDS: VANCOMYCIN/WATER FOR INJ (PEG) 1.5GM/300 ML IVPB IV ONE (16:00)
[2024-12-13] MEDS ORDERED: BUPIVAcaine 2.5mg/ml inj 50ml vial (contains preservative) ONE (17:56)
[2024-12-13] MEDS ORDERED: midazolam 1 mg/ML 2ml injection ONE (18:11)
[2024-12-13] MEDS ORDERED: sevoflurane 250ml liquid IH ONE (18:12)
[2024-12-13] MEDS ORDERED: propofol inj 20 ML IV ONE (18:12)
[2024-12-13] MEDS ORDERED: fentaNYL /PF 50mcg/ml 5ml ampule ONE (18:12)
[2024-12-13] MEDS ORDERED: rocuronium 10mg/ml inj IV ONE (18:12)
[2024-12-13] MEDS ORDERED: ceFOXitin 1000 MG inj ONE ×2 (19:02)
[2024-12-13] MEDS ORDERED: albumin (Human) 5% 250ml 250 ML IV ONE (19:11)
[2024-12-13] MEDS ORDERED: meperidine/PF 25mg/ml syringe IV PRN ×3 (20:40)
[2024-12-13] MEDS ORDERED: ondansetron/PF 4mg/2ml inj IV PRN (20:40)
[2024-12-13] MEDS ORDERED: morphine 2 MG/ML inj. syringe IV PRN (20:40)
[2024-12-13] MEDS ORDERED: labetalol 20mg/4ml (5mg/ml) syringe IV PRN (20:40)
[2024-12-13] MEDS ORDERED: sugammadex 200mg/2ml injection IV ONE (20:51)
[2024-12-13] MEDS: morphine 4 MG/ML inj SYRINge IV PRN (21:19)
[2024-12-13] MEDS: acetaminophen 1,000mg/100ml IV 100 ML IV PRN (21:20)
[2024-12-13] MEDS ORDERED: fentaNYL/PF 50MCG/1 ML 2ML syringe IV PRN ×2 (21:35)
[2024-12-13 21:43] LABS: ABG BASE EXCESS -8.2 mmol/L (-2.0-3.0); ABG HCO3 18.2 mmol/L (21.0-28.0); ABG OXYGEN SATURATION 97.1 % (94.0-98.0); ABG PCO2 (T) 40.6 mmHg (35.0-48.0); ABG PH (T) 7.269 (7.350-7.450); ABG PO2 (T) 100.1 mmHg (83.0-108.0); FCOHb 1.3 % (0.5-1.5); FHHb 2.9 % (0.0-5.0); FLOW 3 L/min; FMetHb 0.3 % (0.0-1.5); FO2Hb 95.5 % (94.0-98.0); MODE NASAL CANNULA; PATIENT TEMPERATURE 36.7; TOTAL HEMOGLOBIN 11.5 G/dl (13.5-17.5)
[2024-12-13 21:54] LABS: BASOPHILS % (AUTO) 0.3 % (0-1); EOSINOPHILS # (AUTO) 0.1 X10'3 (0-0.9); EOSINOPHILS % (AUTO) 0.6 % (0-6); HEMATOCRIT 33.3 % (42.0-52.0); HEMOGLOBIN 10.8 g/dl (14.0-17.9); LYMPHOCYTES # (AUTO) 1.4 X10'3 (1.1-4.8); LYMPHOCYTES % (AUTO) 9.4 % (21-51); MEAN CORPUSCULAR HEMOGLOBIN 28.6 PG (27.0-31.0); MEAN CORPUSCULAR HGB CONC 32.3 g/dL (33.0-36.5); MEAN CORPUSCULAR VOLUME 88.5 FL (78-98); MEAN PLATELET VOLUME 9.1 FL (7.4-10.4); MONOCYTES # (AUTO) 0.9 X10'3 (0-0.9); MONOCYTES % (AUTO) 5.8 % (2-12); NEUTROPHILS # (AUTO) 12.6 X10'3 (1.8-7.7); NEUTROPHILS % (AUTO) 83.9 % (42-75); PLATELET COUNT 114 X10'3 (140-440); RED BLOOD COUNT 3.76 X10'6 (4.70-6.10); RED CELL DISTRIBUTION WIDTH 18.6 % (11.5-14.5)
[2024-12-13] MEDS ORDERED: naloxone 0.4 mg/ml inj IV PRN (22:00)
[2024-12-13] MEDS: morphine/NS PCA 1mg/ml 50ml 50 ML IV SCH ×2 (22:00→22:54)
[2024-12-13] MEDS: ringers solution, lacted 1,000 ML IV SCH (22:13)
[2024-12-13 22:32] LABS: ALANINE AMINOTRANSFERASE 23 U/L (12-78); ALBUMIN 2.8 G/DL (3.4-5.0); ALKALINE PHOSPHATASE 74 IU/L (46-116); ANION GAP 13 (8-16); ASPARTATE AMINO TRANSFERASE 14 U/L (10-37); BILIRUBIN,TOTAL 0.8 MG/DL (0.1-1.0); BLOOD UREA NITROGEN 41 MG/DL (7-18); CALCIUM 8.2 MG/DL (8.5-10.1); CHLORIDE 109 MMOL/L (99-107); CREATININE 2.74 MG/DL (0.60-1.10); GLUCOSE 93 MG/DL (70-104); POTASSIUM 4.2 MMOL/L (3.5-5.1); SODIUM 142 MMOL/L (135-145); TOTAL CARBON DIOXIDE 20.3 MMOL/L (24-32); TOTAL PROTEIN 5.6 G/DL (6.4-8.2); eCRCL 21 ML/MIN; eGFR 22 ML/MIN
[2024-12-13] MEDS: dextrose 5%-lactated ringers 1,000 ML IV SCH (23:23)
[2024-12-14] VITALS (27 sets, daily range): BP systolic 111–149; BP diastolic 40–60; PULSE 63–95; RESP 8–18; O2SAT 94–98
[2024-12-14 02:09] LABS: BASOPHILS % (AUTO) 0.1 % (0-1); EOSINOPHILS % (AUTO) 0.2 % (0-6); HEMATOCRIT 29.5 % (42.0-52.0); HEMOGLOBIN 9.7 g/dl (14.0-17.9); LYMPHOCYTES # (AUTO) 0.2 X10'3 (1.1-4.8); LYMPHOCYTES % (AUTO) 1.8 % (21-51); MEAN CORPUSCULAR HEMOGLOBIN 28.9 PG (27.0-31.0); MEAN CORPUSCULAR HGB CONC 32.8 g/dL (33.0-36.5); MEAN CORPUSCULAR VOLUME 88.2 FL (78-98); MEAN PLATELET VOLUME 9.7 FL (7.4-10.4); MONOCYTES # (AUTO) 0.5 X10'3 (0-0.9); MONOCYTES % (AUTO) 4.5 % (2-12); NEUTROPHILS # (AUTO) 11.1 X10'3 (1.8-7.7); NEUTROPHILS % (AUTO) 93.4 % (42-75); PLATELET COUNT 93 X10'3 (140-440); RED BLOOD COUNT 3.34 X10'6 (4.70-6.10); RED CELL DISTRIBUTION WIDTH 18.5 % (11.5-14.5); WHITE BLOOD COUNT 11.8 X10'3 (4.5-11.0)
[2024-12-14 02:26] LABS: ALANINE AMINOTRANSFERASE 24 U/L (12-78); ALBUMIN 2.4 G/DL (3.4-5.0); ALBUMIN/GLOBULIN RATIO 0.9 (1.1-1.5); ALKALINE PHOSPHATASE 67 IU/L (46-116); ANION GAP 8 (8-16); ASPARTATE AMINO TRANSFERASE 14 U/L (10-37); BILIRUBIN,TOTAL 0.5 MG/DL (0.1-1.0); BLOOD UREA NITROGEN 41 MG/DL (7-18); BUN/CREATININE RATIO 15.4 (10.0-20.0); CHLORIDE 109 MMOL/L (99-107); CREATININE 2.67 MG/DL (0.60-1.10); GLUCOSE 125 MG/DL (70-104); MAGNESIUM 1.9 MG/DL (1.5-2.4); PHOSPHORUS 5.8 MG/DL (2.3-4.5); SODIUM 142 MMOL/L (135-145); TOTAL CARBON DIOXIDE 25.3 MMOL/L (24-32); TOTAL PROTEIN 5.2 G/DL (6.4-8.2); eCRCL 22 ML/MIN; eGFR 23 ML/MIN
[2024-12-14] MEDS: magnesium sulf-water 2g/50mL 50 ML IV ONE (03:04)
[2024-12-14] MEDS ORDERED: FLUT12AE5 INH (07:02)
[2024-12-14] MEDS ORDERED: POTA-206 PO (07:02)
[2024-12-14] MEDS ORDERED: PANT40TA54 PO (09:41)
[2024-12-14] MEDS ORDERED: SUCR1TAB PO (09:41)
[2024-12-14] MEDS ORDERED: ATOR40TA71 PO (09:41)
[2024-12-14] MEDS: VANCOMYCIN 500MG/WATER FOR INJ (PEG) PREMIX 100 ML IV SCH (16:27)
[2024-12-14] MEDS: albuterol 2.5 MG/3 ML nebule NEB ONE (16:59)
[2024-12-14] MEDS: morphine/NS PCA 1mg/ml 50ml 50 ML IV SCH (17:00)
[2024-12-14] MEDS: PCA waste documentation MC SCH (19:32)
[2024-12-14] MEDS: hydrocortisone sod succ/PF 100mg/2ml inj. IV SCH (19:48)
[2024-12-14] MEDS: FLUTICASONE IH SCH (19:51)
[2024-12-14] MEDS: SALMETEROL IH SCH (19:51)
[2024-12-15] VITALS (23 sets, daily range): BP systolic 111–163; BP diastolic 48–79; PULSE 68–91; RESP 6–16; O2SAT 94–98
[2024-12-15 02:53] LABS: BASOPHILS % (AUTO) 0.1 % (0-1); EOSINOPHILS % (AUTO) 0.1 % (0-6); HEMATOCRIT 29.3 % (42.0-52.0); HEMOGLOBIN 9.4 g/dl (14.0-17.9); LYMPHOCYTES # (AUTO) 0.1 X10'3 (1.1-4.8); LYMPHOCYTES % (AUTO) 1.1 % (21-51); MEAN CORPUSCULAR HEMOGLOBIN 28.4 PG (27.0-31.0); MEAN CORPUSCULAR HGB CONC 31.9 g/dL (33.0-36.5); MEAN CORPUSCULAR VOLUME 89.2 FL (78-98); MEAN PLATELET VOLUME 9.4 FL (7.4-10.4); MONOCYTES # (AUTO) 0.8 X10'3 (0-0.9); MONOCYTES % (AUTO) 6.3 % (2-12); NEUTROPHILS # (AUTO) 11.1 X10'3 (1.8-7.7); NEUTROPHILS % (AUTO) 92.4 % (42-75); PLATELET COUNT 83 X10'3 (140-440); RED BLOOD COUNT 3.29 X10'6 (4.70-6.10); RED CELL DISTRIBUTION WIDTH 18.9 % (11.5-14.5)
[2024-12-15 03:39] LABS: ALANINE AMINOTRANSFERASE 23 U/L (12-78); ALBUMIN 2.1 G/DL (3.4-5.0); ALBUMIN/GLOBULIN RATIO 0.7 (1.1-1.5); ALKALINE PHOSPHATASE 69 IU/L (46-116); ANION GAP 10 (8-16); ASPARTATE AMINO TRANSFERASE 17 U/L (10-37); BILIRUBIN,TOTAL 0.3 MG/DL (0.1-1.0); BLOOD UREA NITROGEN 40 MG/DL (7-18); BUN/CREATININE RATIO 14.9 (10.0-20.0); CALCIUM 8.4 MG/DL (8.5-10.1); CHLORIDE 112 MMOL/L (99-107); CREATININE 2.69 MG/DL (0.60-1.10); GLUCOSE 198 MG/DL (70-104); MAGNESIUM 2.4 MG/DL (1.5-2.4); POTASSIUM 4.2 MMOL/L (3.5-5.1); SODIUM 145 MMOL/L (135-145); TOTAL CARBON DIOXIDE 23.2 MMOL/L (24-32); TOTAL PROTEIN 5.3 G/DL (6.4-8.2); eCRCL 22 ML/MIN; eGFR 23 ML/MIN
[2024-12-15] MEDS: piperacillin/tazo 3.375gm/50ml 50 ML IV SCH (11:35)
[2024-12-15] MEDS: hydrocortisone sod succ/PF 100mg/2ml inj. IV SCH (15:00)
[2024-12-15] MEDS ORDERED: Dextrose 10%-water IV solution 1,000 ML IV PRN (15:25)
[2024-12-15] MEDS: ZINC/COPPER/MANGANESE/SELENIUM 0.5 ML, chromic chloride inj. 5 MCG in AMINO ACIDS 5 %/D... IV SCH (18:33)
[2024-12-15] MEDS: fat emulsion 20% inj. 100 ML IV SCH (18:33)
[2024-12-15] MEDS: Dextrose 10%-water IV solution 1,000 ML IV SCH (19:55)
[2024-12-15] MEDS ORDERED: dextrose 50%-water 50ml dispensing syringe IV PRN (19:55)
[2024-12-15] MEDS: insulin regular, human U-100 10ml vial - multi-dose SQ SCH (20:57)
[2024-12-15] MEDS: morphine 4 MG/ML inj SYRINge IV PRN (22:07)
[2024-12-16] VITALS (34 sets, daily range): BP systolic 150–179; BP diastolic 58–109; PULSE 65–119; RESP 8–21; O2SAT 96–100
[2024-12-16 02:40] LABS: BASOPHILS % (AUTO) 0.1 % (0-1); EOSINOPHILS % (AUTO) 0 % (0-6); HEMATOCRIT 26.1 % (42.0-52.0); HEMOGLOBIN 8.5 g/dl (14.0-17.9); LYMPHOCYTES # (AUTO) 0.1 X10'3 (1.1-4.8); LYMPHOCYTES % (AUTO) 1.3 % (21-51); MEAN CORPUSCULAR HEMOGLOBIN 29.2 PG (27.0-31.0); MEAN CORPUSCULAR HGB CONC 32.7 g/dL (33.0-36.5); MEAN CORPUSCULAR VOLUME 89.4 FL (78-98); MEAN PLATELET VOLUME 10.4 FL (7.4-10.4); MONOCYTES # (AUTO) 0.7 X10'3 (0-0.9); NEUTROPHILS # (AUTO) 9.4 X10'3 (1.8-7.7); NEUTROPHILS % (AUTO) 91.6 % (42-75); PLATELET COUNT 76 X10'3 (140-440); RED BLOOD COUNT 2.92 X10'6 (4.70-6.10); RED CELL DISTRIBUTION WIDTH 18.5 % (11.5-14.5); WHITE BLOOD COUNT 10.2 X10'3 (4.5-11.0)
[2024-12-16 02:56] LABS: ALANINE AMINOTRANSFERASE 23 U/L (12-78); ALBUMIN 1.7 G/DL (3.4-5.0); ALBUMIN/GLOBULIN RATIO 0.5 (1.1-1.5); ALKALINE PHOSPHATASE 100 IU/L (46-116); ANION GAP 8 (8-16); ASPARTATE AMINO TRANSFERASE 20 U/L (10-37); BILIRUBIN,TOTAL 0.4 MG/DL (0.1-1.0); BLOOD UREA NITROGEN 43 MG/DL (7-18); BUN/CREATININE RATIO 16.8 (10.0-20.0); CALCIUM 8.5 MG/DL (8.5-10.1); CHLORIDE 115 MMOL/L (99-107); CREATININE 2.56 MG/DL (0.60-1.10); GLUCOSE 204 MG/DL (70-104); MAGNESIUM 2.3 MG/DL (1.5-2.4); PHOSPHORUS 4.4 MG/DL (2.3-4.5); POTASSIUM 3.6 MMOL/L (3.5-5.1); PREALBUMIN 9.9 MG/DL (19-36); SODIUM 147 MMOL/L (135-145); TOTAL CARBON DIOXIDE 24.5 MMOL/L (24-32); TOTAL PROTEIN 4.9 G/DL (6.4-8.2); TRIGLYCERIDES 75 MG/DL (20-135); eCRCL 23 ML/MIN; eGFR 24 ML/MIN
[2024-12-16] MEDS: albuterol 2.5 MG/3 ML nebule NEB PRN (07:45)
[2024-12-16 07:53] LABS: RED BLOOD COUNT 2.88 X10'6 (4.70-6.10)
[2024-12-16] MEDS: nitroGLYCERIN 1gm ointment UD TP SCH (08:17)
[2024-12-16] MEDS: hydrALAZINE 20mg/ml inj. IV PRN (09:14)
[2024-12-16] MEDS: hydrALAZINE 20mg/ml inj. IV ONE (12:33)
[2024-12-16 14:20] LABS: ABG BASE EXCESS -4.1 mmol/L (-2.0-3.0); ABG HCO3 20.4 mmol/L (21.0-28.0); ABG OXYGEN SATURATION 98.7 % (94.0-98.0); ABG PCO2 (T) 35.6 mmHg (35.0-48.0); ABG PH (T) 7.379 (7.350-7.450); ABG PO2 (T) 124.9 mmHg (83.0-108.0); ALLEN'S TEST POSITIVE; FCOHb 0.9 % (0.5-1.5); FHHb 1.3 % (0.0-5.0); FMetHb 0.3 % (0.0-1.5); FO2Hb 97.5 % (94.0-98.0); MODE NASAL CANNULA; PATIENT TEMPERATURE 37.5; TOTAL HEMOGLOBIN 9.8 G/dl (13.5-17.5)
[2024-12-16] MEDS ORDERED: VANCOMYCIN LEVEL IV ONE (15:30)
[2024-12-16] MEDS: ZINC/COPPER/MANGANESE/SELENIUM 0.5 ML, chromic chloride inj. 5 MCG in AMINO ACIDS 5 %/D... IV SCH (15:54)
[2024-12-16] MEDS: hydrocortisone sod succ/PF 100mg/2ml inj. IV SCH (20:15)
[2024-12-16] MEDS: acetaminophen 325mg/10.15ml oral unit dose solution PO PRN (23:33)
[2024-12-17] VITALS (26 sets, daily range): BP systolic 154–256; BP diastolic 57–96; PULSE 64–97; RESP 10–26; O2SAT 93–99
[2024-12-17 02:54] LABS: BASOPHILS % (AUTO) 0.1 % (0-1); EOSINOPHILS % (AUTO) 0 % (0-6); HEMATOCRIT 25.2 % (42.0-52.0); HEMOGLOBIN 8.1 g/dl (14.0-17.9); LYMPHOCYTES # (AUTO) 0.1 X10'3 (1.1-4.8); LYMPHOCYTES % (AUTO) 1.1 % (21-51); MEAN CORPUSCULAR HEMOGLOBIN 28.5 PG (27.0-31.0); MEAN CORPUSCULAR HGB CONC 32.1 g/dL (33.0-36.5); MEAN CORPUSCULAR VOLUME 88.9 FL (78-98); MEAN PLATELET VOLUME 10.2 FL (7.4-10.4); MONOCYTES # (AUTO) 0.6 X10'3 (0-0.9); MONOCYTES % (AUTO) 6.6 % (2-12); NEUTROPHILS # (AUTO) 8.1 X10'3 (1.8-7.7); NEUTROPHILS % (AUTO) 92.2 % (42-75); PLATELET COUNT 75 X10'3 (140-440); RED BLOOD COUNT 2.83 X10'6 (4.70-6.10); RED CELL DISTRIBUTION WIDTH 18.7 % (11.5-14.5); WHITE BLOOD COUNT 8.8 X10'3 (4.5-11.0)
[2024-12-17 03:09] LABS: ALANINE AMINOTRANSFERASE 22 U/L (12-78); ALBUMIN 1.7 G/DL (3.4-5.0); ALBUMIN/GLOBULIN RATIO 0.6 (1.1-1.5); ALKALINE PHOSPHATASE 86 IU/L (46-116); ANION GAP 9 (8-16); ASPARTATE AMINO TRANSFERASE 17 U/L (10-37); BILIRUBIN,TOTAL 0.5 MG/DL (0.1-1.0); BLOOD UREA NITROGEN 59 MG/DL (7-18); BUN/CREATININE RATIO 23.1 (10.0-20.0); CALCIUM 8.4 MG/DL (8.5-10.1); CHLORIDE 114 MMOL/L (99-107); CREATININE 2.55 MG/DL (0.60-1.10); GLUCOSE 355 MG/DL (70-104); PHOSPHORUS 2.5 MG/DL (2.3-4.5); SODIUM 146 MMOL/L (135-145); TOTAL CARBON DIOXIDE 22.7 MMOL/L (24-32); TOTAL PROTEIN 4.6 G/DL (6.4-8.2); eCRCL 23 ML/MIN; eGFR 24 ML/MIN
[2024-12-17 03:24] LABS: POTASSIUM 2.7 MMOL/L (3.5-5.1)
[2024-12-17] MEDS: potassium Cl 20mEq/100mL bag 100 ML IV SCH ×2 (03:41→12:22)
[2024-12-17] MEDS ORDERED: magnesium sulf-water 4G/100mL 100 ML IV PRN (07:00)
[2024-12-17] MEDS ORDERED: potassium Cl 40MEQ/1/2NS 520ml 520 ML IV PRN (07:00)
[2024-12-17] MEDS ORDERED: magnesium sulf-water 2g/50mL 50 ML IV PRN (07:00)
[2024-12-17] MEDS ORDERED: potassium Cl 20 mEq SR tablet PO PRN ×2 (07:00)
[2024-12-17 08:21] LABS: ALANINE AMINOTRANSFERASE 23 U/L (12-78); ALBUMIN 1.8 G/DL (3.4-5.0); ALBUMIN/GLOBULIN RATIO 0.6 (1.1-1.5); ALKALINE PHOSPHATASE 94 IU/L (46-116); ANION GAP 11 (8-16); ASPARTATE AMINO TRANSFERASE 18 U/L (10-37); BILIRUBIN,TOTAL 0.6 MG/DL (0.1-1.0); BLOOD UREA NITROGEN 61 MG/DL (7-18); BUN/CREATININE RATIO 24.1 (10.0-20.0); CALCIUM 8.5 MG/DL (8.5-10.1); CHLORIDE 115 MMOL/L (99-107); CREATININE 2.53 MG/DL (0.60-1.10); GLUCOSE 336 MG/DL (70-104); SODIUM 146 MMOL/L (135-145); TOTAL CARBON DIOXIDE 20.3 MMOL/L (24-32); eCRCL 23 ML/MIN; eGFR 25 ML/MIN
[2024-12-17] MEDS: MVI, adult No.4 with vit. K 10 ML in dextrose 5% water 500ml 500 ML IV SCH (08:30)
[2024-12-17] MEDS: niCARDipine-NS 40mg/200ml IVPB 200 ML IV SCH (08:55)
[2024-12-17] MEDS ORDERED: potassium Cl 40MEQ/270ML bag 270 ML IV PRN (10:25)
[2024-12-17] MEDS ORDERED: POTASSIUM CHLORIDE 20 MEQ/15 ML oral solution PO PRN (10:26)
[2024-12-17] MEDS ORDERED: acetaminophen 325mg/10.15ml oral unit dose solution PO PRN (11:12)
[2024-12-17] MEDS: potassium Cl 20mEq/100mL bag 100 ML IV ONE ×2 (11:14→11:15)
[2024-12-17] MEDS: K and/or MAG REPLACEMENT MC SCH (13:04)
[2024-12-17] MEDS: insulin regular, human U-100 10ml vial - multi-dose SQ SCH (14:42)
[2024-12-17 19:06] LABS: ALANINE AMINOTRANSFERASE 33 U/L (12-78); ALBUMIN 1.8 G/DL (3.4-5.0); ALBUMIN/GLOBULIN RATIO 0.6 (1.1-1.5); ALKALINE PHOSPHATASE 120 IU/L (46-116); ANION GAP 11 (8-16); ASPARTATE AMINO TRANSFERASE 23 U/L (10-37); BILIRUBIN,TOTAL 0.8 MG/DL (0.1-1.0); BLOOD UREA NITROGEN 64 MG/DL (7-18); BUN/CREATININE RATIO 25.9 (10.0-20.0); CALCIUM 8.6 MG/DL (8.5-10.1); CHLORIDE 114 MMOL/L (99-107); CREATININE 2.47 MG/DL (0.60-1.10); GLUCOSE 232 MG/DL (70-104); SODIUM 146 MMOL/L (135-145); TOTAL CARBON DIOXIDE 20.8 MMOL/L (24-32); TOTAL PROTEIN 4.9 G/DL (6.4-8.2); eCRCL 24 ML/MIN; eGFR 25 ML/MIN
[2024-12-17 19:12] LABS: MAGNESIUM 1.9 MG/DL (1.5-2.4)
[2024-12-17] MEDS: furosemide 20 MG/2 ML vial IV SCH (19:41)
[2024-12-17] MEDS: hydrocortisone sod succ/PF 100mg/2ml inj. IV SCH (19:41)
[2024-12-17] MEDS: metoprolol tartrate 25mg tablet PO SCH (19:42)
[2024-12-17] MEDS: nitroGLYCERIN 1gm ointment UD TP SCH (19:43)
[2024-12-17] MEDS ORDERED: furosemide 20 MG/2 ML vial IV SCH (20:00)
[2024-12-17] MEDS: potassium Cl 40MEQ/270ML bag 270 ML IV PRN (21:01)
[2024-12-17] MEDS: hydrALAZINE 20mg/ml inj. IV STA (21:51)
[2024-12-18] VITALS (29 sets, daily range): BP systolic 142–179; BP diastolic 63–90; PULSE 52–95; RESP 12–26; O2SAT 94–99
[2024-12-18 02:21] LABS: ALANINE AMINOTRANSFERASE 39 U/L (12-78); ALBUMIN 1.9 G/DL (3.4-5.0); ALBUMIN/GLOBULIN RATIO 0.6 (1.1-1.5); ALKALINE PHOSPHATASE 127 IU/L (46-116); ANION GAP 9 (8-16); ASPARTATE AMINO TRANSFERASE 29 U/L (10-37); BLOOD UREA NITROGEN 66 MG/DL (7-18); BUN/CREATININE RATIO 25.8 (10.0-20.0); CALCIUM 8.5 MG/DL (8.5-10.1); CHLORIDE 115 MMOL/L (99-107); CREATININE 2.56 MG/DL (0.60-1.10); GLUCOSE 230 MG/DL (70-104); MAGNESIUM 1.9 MG/DL (1.5-2.4); PHOSPHORUS 1.8 MG/DL (2.3-4.5); POTASSIUM 3.3 MMOL/L (3.5-5.1); SODIUM 146 MMOL/L (135-145); TOTAL CARBON DIOXIDE 22.3 MMOL/L (24-32); eCRCL 23 ML/MIN; eGFR 24 ML/MIN
[2024-12-18 02:23] LABS: BASOPHILS % (AUTO) 0.1 % (0-1); EOSINOPHILS % (AUTO) 0.1 % (0-6); HEMATOCRIT 28.3 % (42.0-52.0); HEMOGLOBIN 9.3 g/dl (14.0-17.9); LYMPHOCYTES # (AUTO) 0.1 X10'3 (1.1-4.8); LYMPHOCYTES % (AUTO) 1.1 % (21-51); MEAN CORPUSCULAR HEMOGLOBIN 28.8 PG (27.0-31.0); MEAN CORPUSCULAR HGB CONC 32.7 g/dL (33.0-36.5); MEAN CORPUSCULAR VOLUME 87.9 FL (78-98); MONOCYTES # (AUTO) 0.8 X10'3 (0-0.9); MONOCYTES % (AUTO) 6.5 % (2-12); NEUTROPHILS # (AUTO) 10.9 X10'3 (1.8-7.7); NEUTROPHILS % (AUTO) 92.2 % (42-75); PLATELET COUNT 91 X10'3 (140-440); RED BLOOD COUNT 3.22 X10'6 (4.70-6.10); RED CELL DISTRIBUTION WIDTH 18.9 % (11.5-14.5); WHITE BLOOD COUNT 11.8 X10'3 (4.5-11.0)
[2024-12-18 03:23] LABS: ANISOCYTOSIS 2+; BURR CELLS 1+; PLATELET ESTIMATE DECREASED
[2024-12-18 03:24] LABS: ELLIPTOCYTES 1+; POIKILOCYTOSIS 1+
[2024-12-18] MEDS: potassium Cl 20mEq/100mL bag 100 ML IV ONE (07:18)
[2024-12-18] MEDS ORDERED: sodium phosphate inj. 30 MMOL in dextrose 5%-water 250 ML IV PRN (12:15)
[2024-12-18] MEDS ORDERED: Neutra Phos packet PO PRN (12:15)
[2024-12-18] MEDS: pyridostigmine br 60mg tablet PO SCH (16:44)
[2024-12-18] MEDS: sodium phosphate inj. 15 MMOL in dextrose 5%-water 250 ML IV PRN (16:44)
[2024-12-18] MEDS: prednisone 10mg tablet PO SCH (16:44)
[2024-12-18] MEDS: isosorbide dinitrate 30mg tablet PO SCH (20:00)
[2024-12-18] MEDS: hydrALAZINE 25 MG tablet PO SCH (20:29)
[2024-12-18] MEDS: carvedilol 6.25mg tablet PO SCH (20:30)
[2024-12-18] MEDS: diatr meglu/diatrizoate 30ml oral sol.-(3 dose) bottle PO SCH (21:00)
[2024-12-19] VITALS (25 sets, daily range): BP systolic 102–167; BP diastolic 46–73; PULSE 60–71; RESP 15–30; O2SAT 95–100
[2024-12-19] MEDS: hydrALAZINE 20mg/ml inj. IV PRN (00:08)
[2024-12-19 02:47] LABS: BASOPHILS % (AUTO) 0 % (0-1); EOSINOPHILS # (AUTO) 0.4 X10'3 (0-0.9); EOSINOPHILS % (AUTO) 5.4 % (0-6); HEMATOCRIT 26.3 % (42.0-52.0); HEMOGLOBIN 8.7 g/dl (14.0-17.9); LYMPHOCYTES # (AUTO) 0.2 X10'3 (1.1-4.8); LYMPHOCYTES % (AUTO) 3.1 % (21-51); MEAN CORPUSCULAR HEMOGLOBIN 28.8 PG (27.0-31.0); MEAN CORPUSCULAR HGB CONC 33.1 g/dL (33.0-36.5); MEAN CORPUSCULAR VOLUME 87.1 FL (78-98); MEAN PLATELET VOLUME 8.9 FL (7.4-10.4); MONOCYTES # (AUTO) 0.5 X10'3 (0-0.9); MONOCYTES % (AUTO) 5.9 % (2-12); NEUTROPHILS # (AUTO) 6.7 X10'3 (1.8-7.7); NEUTROPHILS % (AUTO) 85.6 % (42-75); PLATELET COUNT 87 X10'3 (140-440); RED BLOOD COUNT 3.02 X10'6 (4.70-6.10); RED CELL DISTRIBUTION WIDTH 18.5 % (11.5-14.5); WHITE BLOOD COUNT 7.8 X10'3 (4.5-11.0)
[2024-12-19 03:01] LABS: ALANINE AMINOTRANSFERASE 32 U/L (12-78); ALBUMIN 1.7 G/DL (3.4-5.0); ALBUMIN/GLOBULIN RATIO 0.6 (1.1-1.5); ALKALINE PHOSPHATASE 116 IU/L (46-116); ANION GAP 12 (8-16); ASPARTATE AMINO TRANSFERASE 17 U/L (10-37); BILIRUBIN,TOTAL 1.1 MG/DL (0.1-1.0); BLOOD UREA NITROGEN 70 MG/DL (7-18); BUN/CREATININE RATIO 25.2 (10.0-20.0); CALCIUM 7.9 MG/DL (8.5-10.1); CHLORIDE 115 MMOL/L (99-107); CREATININE 2.78 MG/DL (0.60-1.10); GLUCOSE 191 MG/DL (70-104); SODIUM 150 MMOL/L (135-145); TOTAL CARBON DIOXIDE 23.4 MMOL/L (24-32); TOTAL PROTEIN 4.6 G/DL (6.4-8.2); eCRCL 21 ML/MIN; eGFR 22 ML/MIN
[2024-12-19 03:06] LABS: POTASSIUM 2.4 MMOL/L (3.5-5.1)
[2024-12-19] MEDS: POTASSIUM CHLORIDE 20 MEQ/15 ML oral solution PO PRN (03:26)
[2024-12-19] MEDS ORDERED: potassium Cl 20 mEq SR tablet PO STA (07:07)
[2024-12-19] MEDS ORDERED: furosemide 40mg/4ml inj IV SCH (08:00)
[2024-12-19 09:04] LABS: MAGNESIUM 1.6 MG/DL (1.5-2.4); POTASSIUM 3.1 MMOL/L (3.5-5.1)
[2024-12-19] MEDS: magnesium sulf-water 2g/50mL 50 ML IV STA (09:34)
[2024-12-19] MEDS: potassium Cl 20mEq/100mL bag 100 ML IV ONE (11:18)
[2024-12-19] MEDS: morphine 4 MG/ML inj SYRINge ONE ×2 (15:27→18:33)
[2024-12-19] MEDS: morphine 2 MG/ML inj. syringe IV ONE (15:27)
[2024-12-19 18:17] LABS: BASOPHILS % (AUTO) 0.1 % (0-1); EOSINOPHILS # (AUTO) 0.4 X10'3 (0-0.9); EOSINOPHILS % (AUTO) 3.9 % (0-6); HEMATOCRIT 27.5 % (42.0-52.0); LYMPHOCYTES # (AUTO) 0.2 X10'3 (1.1-4.8); LYMPHOCYTES % (AUTO) 2.1 % (21-51); MEAN CORPUSCULAR HEMOGLOBIN 28.2 PG (27.0-31.0); MEAN CORPUSCULAR HGB CONC 32.9 g/dL (33.0-36.5); MEAN CORPUSCULAR VOLUME 85.7 FL (78-98); MEAN PLATELET VOLUME 8.6 FL (7.4-10.4); MONOCYTES # (AUTO) 0.5 X10'3 (0-0.9); MONOCYTES % (AUTO) 4.3 % (2-12); NEUTROPHILS % (AUTO) 89.6 % (42-75); PLATELET COUNT 102 X10'3 (140-440); RED CELL DISTRIBUTION WIDTH 19.1 % (11.5-14.5); WHITE BLOOD COUNT 11.2 X10'3 (4.5-11.0)
[2024-12-19 18:41] LABS: ALANINE AMINOTRANSFERASE 27 U/L (12-78); ALBUMIN 1.8 G/DL (3.4-5.0); ALBUMIN/GLOBULIN RATIO 0.6 (1.1-1.5); ALKALINE PHOSPHATASE 109 IU/L (46-116); ANION GAP 11 (8-16); ASPARTATE AMINO TRANSFERASE 13 U/L (10-37); BILIRUBIN,TOTAL 1.1 MG/DL (0.1-1.0); BLOOD UREA NITROGEN 72 MG/DL (7-18); BUN/CREATININE RATIO 26.1 (10.0-20.0); CALCIUM 8.2 MG/DL (8.5-10.1); CHLORIDE 118 MMOL/L (99-107); CREATININE 2.76 MG/DL (0.60-1.10); GLUCOSE 212 MG/DL (70-104); MAGNESIUM 2.1 MG/DL (1.5-2.4); POTASSIUM 3.4 MMOL/L (3.5-5.1); SODIUM 152 MMOL/L (135-145); TOTAL CARBON DIOXIDE 22.6 MMOL/L (24-32); TOTAL PROTEIN 4.8 G/DL (6.4-8.2); eCRCL 21 ML/MIN; eGFR 22 ML/MIN
[2024-12-19] MEDS ORDERED: dextrose 50%-water 50ml dispensing syringe IV PRN ×4 (18:55→19:15)
[2024-12-19] MEDS ORDERED: glucagon, human recombinant 1mg kit SUBCUT PRN ×2 (18:55→19:15)
[2024-12-19] MEDS ORDERED: DEXTROSE 15 GM of carb/4 tabs (each vial/BOTTLE has 4 tablets) PO PRN ×4 (18:55→19:15)
[2024-12-19] MEDS ORDERED: INSULIN LISPRO 100 UNIT/ML INSULN.PEN MULTI-DOSE SQ SCH ×2 (21:00)
[2024-12-19] MEDS ORDERED: diatr meglu/diatrizoate 30ml oral sol.-(3 dose) bottle PO SCH (21:00)
[2024-12-19] MEDS: NORMAL SALINE IV ONE (21:50)
[2024-12-19] MEDS: SINCALIDE IV ONE (21:50)
[2024-12-19] MEDS: morphine 4 MG/ML inj SYRINge IV PRN (21:52)
[2024-12-20] VITALS (28 sets, daily range): BP systolic 81–132; BP diastolic 38–54; PULSE 60–70; RESP 14–26; O2SAT 3–97
[2024-12-20] MEDS: morphine 2 MG/ML inj. syringe IV PRN (02:05)
[2024-12-20 03:31] LABS: BASOPHILS % (AUTO) 0.1 % (0-1); EOSINOPHILS # (AUTO) 0.3 X10'3 (0-0.9); EOSINOPHILS % (AUTO) 3.1 % (0-6); HEMATOCRIT 28.6 % (42.0-52.0); HEMOGLOBIN 9.4 g/dl (14.0-17.9); LYMPHOCYTES # (AUTO) 0.2 X10'3 (1.1-4.8); MEAN CORPUSCULAR HEMOGLOBIN 28.4 PG (27.0-31.0); MEAN CORPUSCULAR HGB CONC 32.9 g/dL (33.0-36.5); MEAN CORPUSCULAR VOLUME 86.6 FL (78-98); MEAN PLATELET VOLUME 9.3 FL (7.4-10.4); MONOCYTES # (AUTO) 0.3 X10'3 (0-0.9); MONOCYTES % (AUTO) 3.5 % (2-12); NEUTROPHILS # (AUTO) 8.6 X10'3 (1.8-7.7); NEUTROPHILS % (AUTO) 91.3 % (42-75); PLATELET COUNT 100 X10'3 (140-440); WHITE BLOOD COUNT 9.5 X10'3 (4.5-11.0)
[2024-12-20 03:46] LABS: ALANINE AMINOTRANSFERASE 25 U/L (12-78); ALBUMIN 1.5 G/DL (3.4-5.0); ALBUMIN/GLOBULIN RATIO 0.6 (1.1-1.5); ALKALINE PHOSPHATASE 89 IU/L (46-116); ANION GAP 8 (8-16); ASPARTATE AMINO TRANSFERASE 11 U/L (10-37); BILIRUBIN,TOTAL 0.9 MG/DL (0.1-1.0); BLOOD UREA NITROGEN 75 MG/DL (7-18); BUN/CREATININE RATIO 28.3 (10.0-20.0); CALCIUM 7.8 MG/DL (8.5-10.1); CHLORIDE 119 MMOL/L (99-107); CREATININE 2.65 MG/DL (0.60-1.10); GLUCOSE 229 MG/DL (70-104); POTASSIUM 3.3 MMOL/L (3.5-5.1); PREALBUMIN 14.2 MG/DL (19-36); SODIUM 150 MMOL/L (135-145); TOTAL CARBON DIOXIDE 23.4 MMOL/L (24-32); TOTAL PROTEIN 4.1 G/DL (6.4-8.2); TRIGLYCERIDES 126 MG/DL (20-135); eCRCL 22 ML/MIN; eGFR 23 ML/MIN
[2024-12-20] MEDS: NORMAL SALINE IV SCH (05:10)
[2024-12-20] MEDS: MORPHINE IV SCH (05:10)
[2024-12-20] MEDS: normal saline 1000ml 1,000 ML IV SCH (05:12)
[2024-12-20] MEDS ORDERED: furosemide 20 MG/2 ML vial IV SCH (08:00)
[2024-12-20] MEDS: dextrose 5%-water 1,000 ML IV SCH (10:53)
[2024-12-20] MEDS: albumin (Human) 5% 250ml 250 ML IV ONE (13:50)
[2024-12-20] MEDS: PCA WASTE DOCUMENTATION 1 MG ML MC PRN (16:17)
[2024-12-20 17:17] LABS: ALBUMIN 1.7 G/DL (3.4-5.0); ANION GAP 12 (8-16); BLOOD UREA NITROGEN 87 MG/DL (7-18); BUN/CREATININE RATIO 26.9 (10.0-20.0); CALCIUM 7.8 MG/DL (8.5-10.1); CREATININE 3.24 MG/DL (0.60-1.10); GLUCOSE 297 MG/DL (70-104); POTASSIUM 3.4 MMOL/L (3.5-5.1); SODIUM 148 MMOL/L (135-145); TOTAL CARBON DIOXIDE 19.5 MMOL/L (24-32); eCRCL 18 ML/MIN; eGFR 19 ML/MIN
[2024-12-20 17:20] LABS: CHLORIDE 117 MMOL/L (99-107)
[2024-12-21] VITALS (28 sets, daily range): BP systolic 108–181; BP diastolic 41–63; PULSE 60–73; RESP 8–19; O2SAT 93–100
[2024-12-21 02:04] LABS: BASOPHILS % (AUTO) 0 % (0-1); EOSINOPHILS # (AUTO) 0.4 X10'3 (0-0.9); EOSINOPHILS % (AUTO) 1.8 % (0-6); HEMATOCRIT 26.1 % (42.0-52.0); HEMOGLOBIN 8.4 g/dl (14.0-17.9); LYMPHOCYTES # (AUTO) 0.4 X10'3 (1.1-4.8); LYMPHOCYTES % (AUTO) 2.1 % (21-51); MEAN CORPUSCULAR HEMOGLOBIN 27.9 PG (27.0-31.0); MEAN CORPUSCULAR HGB CONC 32.3 g/dL (33.0-36.5); MEAN CORPUSCULAR VOLUME 86.4 FL (78-98); MEAN PLATELET VOLUME 10.3 FL (7.4-10.4); MONOCYTES # (AUTO) 0.8 X10'3 (0-0.9); MONOCYTES % (AUTO) 3.8 % (2-12); NEUTROPHILS # (AUTO) 19.3 X10'3 (1.8-7.7); NEUTROPHILS % (AUTO) 92.3 % (42-75); PLATELET COUNT 109 X10'3 (140-440); RED BLOOD COUNT 3.02 X10'6 (4.70-6.10); RED CELL DISTRIBUTION WIDTH 18.9 % (11.5-14.5); WHITE BLOOD COUNT 20.9 X10'3 (4.5-11.0)
[2024-12-21 02:18] LABS: ALANINE AMINOTRANSFERASE 32 U/L (12-78); ALBUMIN 1.4 G/DL (3.4-5.0); ALBUMIN/GLOBULIN RATIO 0.6 (1.1-1.5); ALKALINE PHOSPHATASE 70 IU/L (46-116); ANION GAP 11 (8-16); ASPARTATE AMINO TRANSFERASE 27 U/L (10-37); BILIRUBIN,TOTAL 1.3 MG/DL (0.1-1.0); BLOOD UREA NITROGEN 85 MG/DL (7-18); BUN/CREATININE RATIO 23.7 (10.0-20.0); CALCIUM 7.7 MG/DL (8.5-10.1); CHLORIDE 110 MMOL/L (99-107); CREATININE 3.59 MG/DL (0.60-1.10); GLUCOSE 249 MG/DL (70-104); MAGNESIUM 1.7 MG/DL (1.5-2.4); PHOSPHORUS 3.1 MG/DL (2.3-4.5); POTASSIUM 3.1 MMOL/L (3.5-5.1); SODIUM 142 MMOL/L (135-145); TOTAL CARBON DIOXIDE 20.6 MMOL/L (24-32); TOTAL PROTEIN 3.9 G/DL (6.4-8.2); eCRCL 16 ML/MIN; eGFR 16 ML/MIN
[2024-12-21] MEDS: potassium Cl 20mEq/100mL bag 100 ML IV PRN (03:33)
[2024-12-21] MEDS: ringers solution, lacted 1,000 ML IV SCH (07:40)
[2024-12-21] MEDS: hydrocortisone sod succ/PF 100mg/2ml inj. IV SCH (08:44)
[2024-12-21] MEDS: micafungin inj 100 MG in normal saline 100ml IV soln 100 ML IV SCH (09:32)
[2024-12-21 12:57] LABS: ALBUMIN 1.3 G/DL (3.4-5.0); ANION GAP 8 (8-16); BLOOD UREA NITROGEN 86 MG/DL (7-18); BUN/CREATININE RATIO 22.6 (10.0-20.0); CALCIUM 7.7 MG/DL (8.5-10.1); CHLORIDE 107 MMOL/L (99-107); CREATININE 3.81 MG/DL (0.60-1.10); GLUCOSE 237 MG/DL (70-104); POTASSIUM 3.8 MMOL/L (3.5-5.1); SODIUM 136 MMOL/L (135-145); TOTAL CARBON DIOXIDE 20.6 MMOL/L (24-32); eCRCL 15 ML/MIN; eGFR 15 ML/MIN
[2024-12-21] MEDS ORDERED: heparin 10,000 units/1 ML INJ ONE (13:48)
[2024-12-21] MEDS ORDERED: sevoflurane 250ml liquid IH ONE (14:17)
[2024-12-21 14:26] LABS: ABG BASE EXCESS -9.4 mmol/L (-2.0-3.0); ABG HCO3 15.8 mmol/L (21.0-28.0); ABG OXYGEN SATURATION 95.5 % (94.0-98.0); ABG PCO2 (T) 31.9 mmHg (35.0-48.0); ABG PH (T) 7.313 (7.350-7.450); ABG PO2 (T) 80.1 mmHg (83.0-108.0); ALLEN'S TEST POSITIVE; FCOHb 0.6 % (0.5-1.5); FHHb 4.5 % (0.0-5.0); FMetHb 0.3 % (0.0-1.5); FO2Hb 94.6 % (94.0-98.0); MODE ROOM AIR; TOTAL HEMOGLOBIN 9.6 G/dl (13.5-17.5)
[2024-12-21] MEDS ORDERED: midazolam 1 mg/ML 2ml injection ONE (14:32)
[2024-12-21] MEDS ORDERED: fentaNYL /PF 50mcg/ml 5ml ampule ONE (14:32)
[2024-12-21] MEDS ORDERED: NORepinephrine 8mg/ 250ml NS 250 ML IV ONE (14:35)
[2024-12-21] MEDS ORDERED: etomidate 2mg/ml inj. ONE (14:54)
[2024-12-21] MEDS ORDERED: rocuronium 10mg/ml inj IV ONE ×2 (14:54→17:05)
[2024-12-21] MEDS ORDERED: sodium bicarbonate (8.4%) inj. 1 MEQ/ML ML ONE ×2 (15:18)
[2024-12-21] MEDS ORDERED: albuterol 2.5 MG/3 ML nebule NEB PRN (16:00)
[2024-12-21] MEDS ORDERED: MANNITOL 20% IV ONE (16:15)
[2024-12-21] MEDS: mannitol 20% 500ml IV soln 500 ML IV ONE (16:26)
[2024-12-21] MEDS ORDERED: morphine 4 MG/ML inj SYRINge ONE (17:05)
[2024-12-21] MEDS ORDERED: albumin (Human) 5% 250ml 250 ML IV ONE (17:26)
[2024-12-21 18:04] LABS: ABG BASE EXCESS -9.5 mmol/L (-2.0-3.0); ABG HCO3 16.3 mmol/L (21.0-28.0); ABG OXYGEN SATURATION 99.3 % (94.0-98.0); ABG PCO2 (T) 35.1 mmHg (35.0-48.0); ABG PH (T) 7.285 (7.350-7.450); ABG PO2 (T) 181.1 mmHg (83.0-108.0); FCOHb 0.6 % (0.5-1.5); FHHb 0.7 % (0.0-5.0); FMetHb 0.3 % (0.0-1.5); FO2Hb 98.4 % (94.0-98.0); MODE VENT - SIMV; RESPIRATORY RATE 14 b/min; TIDAL VOLUME 500 mL; TOTAL HEMOGLOBIN 8.3 G/dl (13.5-17.5)
[2024-12-21] MEDS: propofol 1000mg/100ml bottle 100 ML IV SCH (18:08)
[2024-12-21] MEDS: FENTANYL-0.9 % NACL/PF 100 ML IV SCH (18:08)
[2024-12-21] MEDS: sodium bicarbonate 1meq/ml inj 150 ML in sodium chloride 0.45% 1,000 ML IV SCH (18:53)
[2024-12-21] MEDS: piperacillin/tazo 3.375gm/50ml 50 ML IV SCH (20:00)
[2024-12-21] MEDS: diatr meglu/diatrizoate 30ml oral sol.-(3 dose) bottle PO SCH (21:00)
[2024-12-22] VITALS (37 sets, daily range): BP systolic 110–176; BP diastolic 35–86; PULSE 60–78; RESP 9–22; TEMP 97.3–97.6; O2SAT 98–100
[2024-12-22] MEDS ORDERED: NORepinephrine 8mg/ 250ml NS 250 ML IV SCH (00:50)
[2024-12-22] MEDS: ZINC/COPPER/MANGANESE/SELENIUM 0.5 ML, chromic chloride inj. 5 MCG in AMINO ACIDS 5 %/D... IV SCH (01:53)
[2024-12-22 03:42] LABS: ABG BASE EXCESS -9.5 mmol/L (-2.0-3.0); ABG HCO3 16.1 mmol/L (21.0-28.0); ABG OXYGEN SATURATION 98.1 % (94.0-98.0); ABG PCO2 (T) 32.3 mmHg (35.0-48.0); ABG PO2 (T) 105.2 mmHg (83.0-108.0); FCOHb 0.5 % (0.5-1.5); FHHb 1.9 % (0.0-5.0); FMetHb 0.3 % (0.0-1.5); FO2Hb 97.3 % (94.0-98.0); PEEP 5 cm H2O; RESPIRATORY RATE 14 b/min; TIDAL VOLUME 500 mL; TOTAL HEMOGLOBIN 7.8 G/dl (13.5-17.5)
[2024-12-22 03:44] LABS: BASOPHILS # (AUTO) 0.1 X10'3 (0-0.2); BASOPHILS % (AUTO) 0.3 % (0-1); EOSINOPHILS # (AUTO) 0.1 X10'3 (0-0.9); EOSINOPHILS % (AUTO) 0.3 % (0-6); LYMPHOCYTES # (AUTO) 0.3 X10'3 (1.1-4.8); LYMPHOCYTES % (AUTO) 1.7 % (21-51); MEAN CORPUSCULAR HEMOGLOBIN 27.9 PG (27.0-31.0); MEAN CORPUSCULAR HGB CONC 32.3 g/dL (33.0-36.5); MEAN CORPUSCULAR VOLUME 86.2 FL (78-98); MEAN PLATELET VOLUME 10.8 FL (7.4-10.4); MONOCYTES # (AUTO) 0.7 X10'3 (0-0.9); MONOCYTES % (AUTO) 3.6 % (2-12); NEUTROPHILS # (AUTO) 18.4 X10'3 (1.8-7.7); NEUTROPHILS % (AUTO) 94.1 % (42-75); PLATELET COUNT 110 X10'3 (140-440); RED CELL DISTRIBUTION WIDTH 18.6 % (11.5-14.5); WHITE BLOOD COUNT 19.6 X10'3 (4.5-11.0)
[2024-12-22 03:47] LABS: HEMATOCRIT 21.5 % (42.0-52.0)
[2024-12-22 04:08] LABS: ALANINE AMINOTRANSFERASE 98 U/L (12-78); ALBUMIN 1.2 G/DL (3.4-5.0); ALBUMIN/GLOBULIN RATIO 0.6 (1.1-1.5); ALKALINE PHOSPHATASE 71 IU/L (46-116); ANION GAP 14 (8-16); ASPARTATE AMINO TRANSFERASE 117 U/L (10-37); BILIRUBIN,TOTAL 1.6 MG/DL (0.1-1.0); BLOOD UREA NITROGEN 96 MG/DL (7-18); BUN/CREATININE RATIO 23.6 (10.0-20.0); CALCIUM 7.5 MG/DL (8.5-10.1); CHLORIDE 104 MMOL/L (99-107); CREATININE 4.06 MG/DL (0.60-1.10); PHOSPHORUS 4.1 MG/DL (2.3-4.5); POTASSIUM 3.8 MMOL/L (3.5-5.1); SODIUM 137 MMOL/L (135-145); TOTAL CARBON DIOXIDE 18.7 MMOL/L (24-32); TOTAL PROTEIN 3.3 G/DL (6.4-8.2); eCRCL 15 ML/MIN; eGFR 14 ML/MIN
[2024-12-22 04:10] LABS: GLUCOSE 416 MG/DL (70-104)
[2024-12-22 08:12] LABS: HBSAG SCREEN Negative (Negative); HEP B SURF AB Non Reactive (.)
[2024-12-22] MEDS ORDERED: INSULIN LISPRO 100 UNIT/ML INSULN.PEN MULTI-DOSE SQ SCH (12:00)
[2024-12-22] MEDS: insulin regular, human U-100 10ml vial - multi-dose SQ SCH (14:29)
[2024-12-22] MEDS ORDERED: acetaminophen 325mg/10.15ml oral unit dose solution GT PRN ×2 (17:03)
[2024-12-22] MEDS ORDERED: DEXTROSE 15 GM of carb/4 tabs (each vial/BOTTLE has 4 tablets) GT PRN ×2 (17:04)
[2024-12-22] MEDS ORDERED: Neutra Phos packet GT PRN (17:04)
[2024-12-22] MEDS: ringers solution, lacted 1,000 ML IV SCH (17:05)
[2024-12-22] MEDS: piperacillin/tazo 4.5gm/100ml 100 ML IV SCH (20:14)
[2024-12-22] MEDS: carvedilol 6.25mg tablet GT SCH (20:14)
[2024-12-22] MEDS: insulin glargine (Lantus) pen - multi-dose SQ SCH (20:38)
[2024-12-22] MEDS: NPH, human insulin isophane inj. SQ ONE (21:41)
[2024-12-23] VITALS (34 sets, daily range): BP systolic 125–150; BP diastolic 37–51; PULSE 60–71; RESP 12–17; O2SAT 98–100
[2024-12-23 02:55] LABS: BASOPHILS % (AUTO) 0.2 % (0-1); EOSINOPHILS # (AUTO) 0.1 X10'3 (0-0.9); EOSINOPHILS % (AUTO) 0.4 % (0-6); LYMPHOCYTES # (AUTO) 0.5 X10'3 (1.1-4.8); MEAN CORPUSCULAR VOLUME 84.4 FL (78-98); RED BLOOD COUNT 2.84 X10'6 (4.70-6.10); WHITE BLOOD COUNT 23.8 X10'3 (4.5-11.0)
[2024-12-23 02:57] LABS: HEMOGLOBIN 8.1 g/dl (14.0-17.9); MEAN CORPUSCULAR HEMOGLOBIN 28.5 PG (27.0-31.0); MEAN CORPUSCULAR HGB CONC 33.7 g/dL (33.0-36.5); MEAN PLATELET VOLUME 11.4 FL (7.4-10.4); MONOCYTES # (AUTO) 1.1 X10'3 (0-0.9); MONOCYTES % (AUTO) 4.7 % (2-12); NEUTROPHILS % (AUTO) 92.7 % (42-75); PLATELET COUNT 154 X10'3 (140-440); RED CELL DISTRIBUTION WIDTH 17.6 % (11.5-14.5)
[2024-12-23 03:01] LABS: BILIRUBIN,URINE NEGATIVE (Neg); CLARITY,URINE CLEAR (Clear); COLOR,URINE YELLOW (Yellow); GLUCOSE, URINE 100 mg/dl (Neg); KETONES,URINE NEGATIVE (Neg); LEUKOCYTE ESTERASE ,URINE NEGATIVE (Neg); NITRITES, URINE NEGATIVE (Neg); OCCULT BLOOD,URINE SMALL (Neg); PH,URINE 5.5 (4.8-8.0); PROTEIN,URINE 30 mg/dl (Neg); UROBILINOGEN,URINE 0.2 E.U/dL (0.2-1.0)
[2024-12-23 03:08] LABS: CHLORIDE,URINE RANDOM < 50 MEQ/L; SODIUM,URINE RANDOM < 15 MEQ/L
[2024-12-23 03:15] LABS: UA COLLECTION TYPE NON-SPECIFIED
[2024-12-23 03:17] LABS: BACTERIA,URINE 1+ /HPF (Neg); RBC,URINE 0-2 /HPF (0-2); SQUAMOUS EPITHELIAL CELL,UR FEW /LPF (FEW); WBC,URINE 0-4 /HPF (0-4)
[2024-12-23 03:21] LABS: ABG BASE EXCESS -10.9 mmol/L (-2.0-3.0); ABG HCO3 14.5 mmol/L (21.0-28.0); ABG OXYGEN SATURATION 99.2 % (94.0-98.0); ABG PCO2 (T) 29.4 mmHg (35.0-48.0); ABG PH (T) 7.307 (7.350-7.450); ABG PO2 (T) 135.8 mmHg (83.0-108.0); FCOHb 0.8 % (0.5-1.5); FHHb 0.8 % (0.0-5.0); FMetHb 0.3 % (0.0-1.5); FO2Hb 98.1 % (94.0-98.0); MODE VENT - SIMV; PATIENT TEMPERATURE 36.2; PEEP 5 cm H2O; RESPIRATORY RATE 14 b/min; TIDAL VOLUME 500 mL; TOTAL HEMOGLOBIN 8.8 G/dl (13.5-17.5)
[2024-12-23 03:23] LABS: NUCLEATED RED BLOOD CELLS 1 /100WBC (0-0); TOTAL CELLS COUNTED 100
[2024-12-23 03:24] LABS: ANISOCYTOSIS 1+; BURR CELLS 1+; ELLIPTOCYTES 1+; POIKILOCYTOSIS 1+
[2024-12-23 03:26] LABS: OSMOLALITY UA 267 MOSM/K (50-1400)
[2024-12-23 03:27] LABS: ALANINE AMINOTRANSFERASE 194 U/L (12-78); ALBUMIN 1.1 G/DL (3.4-5.0); ALBUMIN/GLOBULIN RATIO 0.4 (1.1-1.5); ALKALINE PHOSPHATASE 113 IU/L (46-116); ANION GAP 15 (8-16); ASPARTATE AMINO TRANSFERASE 140 U/L (10-37); BLOOD UREA NITROGEN 108 MG/DL (7-18); BUN/CREATININE RATIO 24.8 (10.0-20.0); CALCIUM 7.8 MG/DL (8.5-10.1); CHLORIDE 100 MMOL/L (99-107); CREATININE 4.35 MG/DL (0.60-1.10); GLUCOSE 345 MG/DL (70-104); MAGNESIUM 1.4 MG/DL (1.5-2.4); PHOSPHORUS 4.1 MG/DL (2.3-4.5); POTASSIUM 3.4 MMOL/L (3.5-5.1); PREALBUMIN 8.9 MG/DL (19-36); SODIUM 131 MMOL/L (135-145); TOTAL CARBON DIOXIDE 16.2 MMOL/L (24-32); TOTAL PROTEIN 3.9 G/DL (6.4-8.2); TRIGLYCERIDES 183 MG/DL (20-135); eCRCL 14 ML/MIN; eGFR 13 ML/MIN
[2024-12-23 03:40] LABS: OSMOLALITY 319 MOSM/K (280-300)
[2024-12-23] MEDS: prednisone 10mg tablet GT SCH (07:15)
[2024-12-23] MEDS: linezolid 600mg/300ml PREMIX 300 ML IV SCH (08:37)
[2024-12-23] MEDS: Potassium Cl inj 40 MEQ in normal saline 500ml IV soln 500 ML IV ONE (13:16)
[2024-12-23] MEDS: insulin glargine (Lantus) pen - multi-dose SQ SCH (15:54)
[2024-12-23] MEDS: magnesium sulf-water 2g/50mL 50 ML IV ONE (16:32)
[2024-12-23] MEDS: pyridostigmine br 60mg tablet JT SCH (20:12)
[2024-12-23] MEDS: insulin regular, human 10 units/0.1 ml syringe SQ SCH (20:52)
[2024-12-23] MEDS: insulin regular, human U-100 10ml vial - multi-dose SQ SCH (20:54)
[2024-12-23] MEDS: ZINC/COPPER/MANGANESE/SELENIUM 0.5 ML, chromic chloride inj. 5 MCG in AMINO ACIDS 5 %/D... IV SCH (21:13)
[2024-12-24] VITALS (40 sets, daily range): BP systolic 93–179; BP diastolic 31–62; PULSE 58–75; RESP 11–17; TEMP 97.6–97.8; O2SAT 98–100
[2024-12-24] MEDS ORDERED: ZINC/COPPER/MANGANESE/SELENIUM 0.5 ML, chromic chloride inj. 5 MCG in AMINO ACIDS 5 %/D... IV SCH
[2024-12-24] MEDS: insulin regular, human 10 units/0.1 ml syringe SQ ONE ×2 (03:00→23:02)
[2024-12-24 03:32] LABS: BASOPHILS % (AUTO) 0.1 % (0-1); EOSINOPHILS % (AUTO) 0.2 % (0-6); HEMATOCRIT 24.9 % (42.0-52.0); HEMOGLOBIN 8.3 g/dl (14.0-17.9); LYMPHOCYTES # (AUTO) 0.3 X10'3 (1.1-4.8); LYMPHOCYTES % (AUTO) 1.7 % (21-51); MEAN CORPUSCULAR HEMOGLOBIN 28.8 PG (27.0-31.0); MEAN CORPUSCULAR HGB CONC 33.6 g/dL (33.0-36.5); MEAN CORPUSCULAR VOLUME 85.7 FL (78-98); MEAN PLATELET VOLUME 10.4 FL (7.4-10.4); MONOCYTES # (AUTO) 0.9 X10'3 (0-0.9); MONOCYTES % (AUTO) 5.2 % (2-12); NEUTROPHILS # (AUTO) 16.9 X10'3 (1.8-7.7); NEUTROPHILS % (AUTO) 92.8 % (42-75); PLATELET COUNT 177 X10'3 (140-440); RED CELL DISTRIBUTION WIDTH 17.8 % (11.5-14.5); WHITE BLOOD COUNT 18.2 X10'3 (4.5-11.0)
[2024-12-24 04:23] LABS: ALANINE AMINOTRANSFERASE 135 U/L (12-78); ALBUMIN/GLOBULIN RATIO 0.3 (1.1-1.5); ALKALINE PHOSPHATASE 117 IU/L (46-116); ANION GAP 14 (8-16); ASPARTATE AMINO TRANSFERASE 53 U/L (10-37); BILIRUBIN,TOTAL 1.3 MG/DL (0.1-1.0); BLOOD UREA NITROGEN 115 MG/DL (7-18); BUN/CREATININE RATIO 25.7 (10.0-20.0); CALCIUM 7.7 MG/DL (8.5-10.1); CHLORIDE 97 MMOL/L (99-107); CREATININE 4.48 MG/DL (0.60-1.10); MAGNESIUM 1.8 MG/DL (1.5-2.4); PHOSPHORUS 4.6 MG/DL (2.3-4.5); POTASSIUM 4.2 MMOL/L (3.5-5.1); SODIUM 126 MMOL/L (135-145); TOTAL CARBON DIOXIDE 15.1 MMOL/L (24-32); TOTAL PROTEIN 4.1 G/DL (6.4-8.2); eCRCL 13 ML/MIN; eGFR 13 ML/MIN
[2024-12-24 04:24] LABS: TOTAL CELLS COUNTED 100
[2024-12-24 04:27] LABS: GLUCOSE 475 MG/DL (70-104)
[2024-12-24 04:32] LABS: ABG HCO3 12.5 mmol/L (21.0-28.0); ABG OXYGEN SATURATION 98.4 % (94.0-98.0); ABG PCO2 (T) 27.3 mmHg (35.0-48.0); ABG PH (T) 7.278 (7.350-7.450); ABG PO2 (T) 118.1 mmHg (83.0-108.0); FCOHb 0.4 % (0.5-1.5); FHHb 1.6 % (0.0-5.0); MODE simv; PATIENT TEMPERATURE 36.7; PEEP 5 cm H2O; RESPIRATORY RATE 14 b/min; TIDAL VOLUME 500 mL; TOTAL HEMOGLOBIN 8.9 G/dl (13.5-17.5)
[2024-12-24] MEDS ORDERED: iohexol 300mg/ml 100ml inj. ONE (08:51)
[2024-12-24] MEDS ORDERED: heparin 1,000 UNITS/NS 500ml 500 ML ONE (08:51)
[2024-12-24 09:42] LABS: INR 1.1 INR; PROTHROMBIN TIME 11.5 SECONDS (9.0-12.0)
[2024-12-24] MEDS: insulin regular, human U-100 10ml vial - multi-dose SQ SCH (09:58)
[2024-12-24] MEDS ORDERED: normal saline 1000ml 100 ML IV PRN (10:20)
[2024-12-24] MEDS ORDERED: albumin (human) 25% 100ml IV 100 ML IV PRN (10:20)
[2024-12-24] MEDS: sodium bicarbonate (8.4%) inj. 100 MEQ in dextrose 5%-water 1,000 ML IV SCH (10:28)
[2024-12-24] MEDS ORDERED: heparin 1,000unit/ml 10ml vial 10 ML ONE ×2 (11:35→12:51)
[2024-12-24] MEDS: LIDOcaine 1%/PF 5ML 10 MG/ML VIAL ONE (14:18)
[2024-12-24] MEDS: clopidogrel 75mg tablet PO ONE (15:18)
[2024-12-24] MEDS: Insulin Reg/NS 100units/100mL 100 ML IV SCH (17:06)
[2024-12-24] MEDS: mannitol 12.5gm/50mL VIAL IV ONE (17:42)
[2024-12-24] MEDS: heparin 1,000 units/ml 10ml inj HE ONE ×2 (17:43→17:44)
[2024-12-24 19:30] LABS: HEMOGLOBIN 8.8 g/dl (14.0-17.9); MEAN CORPUSCULAR HEMOGLOBIN 28.2 PG (27.0-31.0); MEAN CORPUSCULAR VOLUME 83.1 FL (78-98); MEAN PLATELET VOLUME 9.8 FL (7.4-10.4); PLATELET COUNT 257 X10'3 (140-440); RED BLOOD COUNT 3.13 X10'6 (4.70-6.10); RED CELL DISTRIBUTION WIDTH 17.6 % (11.5-14.5)
[2024-12-24 19:36] LABS: WHITE BLOOD COUNT 32.6 X10'3 (4.5-11.0)
[2024-12-24] MEDS: hydrocortisone sod succ/PF 100mg/2ml inj. IV SCH (20:41)
[2024-12-24 21:12] LABS: ABG BASE EXCESS -8.8 mmol/L (-2.0-3.0); ABG HCO3 15.7 mmol/L (21.0-28.0); ABG OXYGEN SATURATION 98.8 % (94.0-98.0); ABG PCO2 (T) 27.5 mmHg (35.0-48.0); ABG PH (T) 7.369 (7.350-7.450); ABG PO2 (T) 129.8 mmHg (83.0-108.0); FCOHb 0.1 % (0.5-1.5); FHHb 1.2 % (0.0-5.0); FMetHb 0.1 % (0.0-1.5); FO2Hb 98.6 % (94.0-98.0); MODE VENT - SIMV; PEEP 5 cm H2O; RESPIRATORY RATE 14 b/min; TIDAL VOLUME 500 mL; TOTAL HEMOGLOBIN 8.9 G/dl (13.5-17.5)
[2024-12-24 21:46] LABS: OXYGEN SATURATION (MIXED VEN) 74.1 % (60-80); PO2 MIXED VENOUS (TEMP COR) 38.6 mmHg (35-46)
[2024-12-24] MEDS: midazolam 100mg in NS 100ml 100 ML IV SCH (21:50)
[2024-12-24 22:04] LABS: ALBUMIN 0.9 G/DL (3.4-5.0); ANION GAP 11 (8-16); BLOOD UREA NITROGEN 87 MG/DL (7-18); BUN/CREATININE RATIO 24.9 (10.0-20.0); CALCIUM 7.4 MG/DL (8.5-10.1); CHLORIDE 97 MMOL/L (99-107); GLUCOSE 349 MG/DL (70-104); MAGNESIUM 1.5 MG/DL (1.5-2.4); PHOSPHORUS 3.2 MG/DL (2.3-4.5); POTASSIUM 3.5 MMOL/L (3.5-5.1); SODIUM 127 MMOL/L (135-145); TOTAL CARBON DIOXIDE 18.7 MMOL/L (24-32); eCRCL 17 ML/MIN; eGFR 17 ML/MIN
[2024-12-24] MEDS: insulin regular, human U-100 10ml vial - multi-dose IV ONE (22:15)
[2024-12-25] VITALS (46 sets, daily range): BP systolic 80–144; BP diastolic 33–51; PULSE 60–70; RESP 10–16; TEMP 97.6–97.8; O2SAT 95–100
[2024-12-25] MEDS: insulin regular, human 10 units/0.1 ml syringe SQ ONE ×2 (00:04→01:05)
[2024-12-25] MEDS: insulin regular, human U-100 10ml vial - multi-dose SQ ONE ×5 (01:16→05:39)
[2024-12-25 03:27] LABS: BASOPHILS % (AUTO) 0 % (0-1); EOSINOPHILS # (AUTO) 0.1 X10'3 (0-0.9); EOSINOPHILS % (AUTO) 0.4 % (0-6); HEMOGLOBIN 7.2 g/dl (14.0-17.9); LYMPHOCYTES # (AUTO) 0.4 X10'3 (1.1-4.8); LYMPHOCYTES % (AUTO) 1.8 % (21-51); MEAN CORPUSCULAR HEMOGLOBIN 28.3 PG (27.0-31.0); MEAN CORPUSCULAR HGB CONC 33.6 g/dL (33.0-36.5); MEAN CORPUSCULAR VOLUME 84.3 FL (78-98); MEAN PLATELET VOLUME 9.5 FL (7.4-10.4); MONOCYTES # (AUTO) 0.9 X10'3 (0-0.9); MONOCYTES % (AUTO) 4.1 % (2-12); NEUTROPHILS # (AUTO) 20.1 X10'3 (1.8-7.7); NEUTROPHILS % (AUTO) 93.7 % (42-75); PLATELET COUNT 197 X10'3 (140-440); RED BLOOD COUNT 2.55 X10'6 (4.70-6.10); RED CELL DISTRIBUTION WIDTH 17.4 % (11.5-14.5); WHITE BLOOD COUNT 21.4 X10'3 (4.5-11.0)
[2024-12-25 03:32] LABS: ABG BASE EXCESS -9.1 mmol/L (-2.0-3.0); ABG HCO3 15.8 mmol/L (21.0-28.0); ABG OXYGEN SATURATION 99.1 % (94.0-98.0); ABG PCO2 (T) 27.8 mmHg (35.0-48.0); ABG PH (T) 7.364 (7.350-7.450); ABG PO2 (T) 114.9 mmHg (83.0-108.0); FCOHb 1.2 % (0.5-1.5); FHHb 0.9 % (0.0-5.0); FMetHb 0.3 % (0.0-1.5); FO2Hb 97.6 % (94.0-98.0); MODE VENT - SIMV; PATIENT TEMPERATURE 35.4; PEEP 5 cm H2O; RESPIRATORY RATE 14 b/min; TIDAL VOLUME 500 mL; TOTAL HEMOGLOBIN 7.8 G/dl (13.5-17.5)
[2024-12-25 03:51] LABS: ALANINE AMINOTRANSFERASE 86 U/L (12-78); ALBUMIN 0.8 G/DL (3.4-5.0); ALBUMIN/GLOBULIN RATIO 0.3 (1.1-1.5); ALKALINE PHOSPHATASE 102 IU/L (46-116); ANION GAP 11 (8-16); ASPARTATE AMINO TRANSFERASE 31 U/L (10-37); BILIRUBIN,TOTAL 0.9 MG/DL (0.1-1.0); BLOOD UREA NITROGEN 90 MG/DL (7-18); BUN/CREATININE RATIO 24.4 (10.0-20.0); CALCIUM 7.2 MG/DL (8.5-10.1); CHLORIDE 96 MMOL/L (99-107); CREATININE 3.69 MG/DL (0.60-1.10); GLUCOSE 305 MG/DL (70-104); MAGNESIUM 1.4 MG/DL (1.5-2.4); POTASSIUM 3.1 MMOL/L (3.5-5.1); SODIUM 127 MMOL/L (135-145); TOTAL CARBON DIOXIDE 19.7 MMOL/L (24-32); TOTAL PROTEIN 3.6 G/DL (6.4-8.2); eCRCL 16 ML/MIN; eGFR 16 ML/MIN
[2024-12-25 04:25] LABS: ANISOCYTOSIS 1+; PLATELET ESTIMATE NORMAL; TOTAL CELLS COUNTED 100
[2024-12-25 04:27] LABS: HEMATOCRIT 21.5 % (42.0-52.0)
[2024-12-25] MEDS ORDERED: sodium bicarbonate (8.4%) inj. 100 MEQ in dextrose 5%-water 1,000 ML IV SCH (04:50)
[2024-12-25] MEDS: magnesium sulf-water 4G/100mL 100 ML IV PRN (05:58)
[2024-12-25] MEDS: sodium bicarbonate (8.4%) inj. 100 MEQ in sodium chloride 0.45% 1,000 ML IV SCH (07:25)
[2024-12-25] MEDS: clopidogrel 75mg tablet PO SCH (08:26)
[2024-12-25] MEDS: albumin (human) 25% 100ml IV 100 ML IV PRN (11:38)
[2024-12-25] MEDS: EPOETIN ALFA-EPBX 20,000 UNIT/ML 1 ML MDV IV ONE (12:09)
[2024-12-25] MEDS: heparin 1,000 units/ml 10ml inj HE ONE ×2 (12:10→12:11)
[2024-12-25] MEDS ORDERED: Dextrose 10%-water IV solution 1,000 ML IV PRN (12:55)
[2024-12-25] MEDS: dextrose 50%-water 50ml dispensing syringe IV PRN (14:30)
[2024-12-25] MEDS: pantoprazole 40 MG vial IV SCH (14:34)
[2024-12-25] MEDS: fat emulsion 20% inj. 100 ML IV SCH (21:55)
[2024-12-26] VITALS (39 sets, daily range): BP systolic 121–188; BP diastolic 37–72; PULSE 60–68; RESP 10–19; TEMP 97.7–99; O2SAT 95–99
[2024-12-26 03:02] LABS: EOSINOPHILS # (AUTO) 0.3 X10'3 (0-0.9)
[2024-12-26 03:05] LABS: BASOPHILS # (AUTO) 0.1 X10'3 (0-0.2); BASOPHILS % (AUTO) 0.3 % (0-1); EOSINOPHILS % (AUTO) 1.1 % (0-6); LYMPHOCYTES # (AUTO) 0.5 X10'3 (1.1-4.8); MEAN CORPUSCULAR HEMOGLOBIN 28.1 PG (27.0-31.0); MEAN CORPUSCULAR HGB CONC 33.9 g/dL (33.0-36.5); MEAN CORPUSCULAR VOLUME 82.9 FL (78-98); MEAN PLATELET VOLUME 8.8 FL (7.4-10.4); MONOCYTES # (AUTO) 1.3 X10'3 (0-0.9); MONOCYTES % (AUTO) 4.8 % (2-12); NEUTROPHILS # (AUTO) 25.1 X10'3 (1.8-7.7); NEUTROPHILS % (AUTO) 91.8 % (42-75); PLATELET COUNT 236 X10'3 (140-440); RED BLOOD COUNT 2.49 X10'6 (4.70-6.10); RED CELL DISTRIBUTION WIDTH 17.3 % (11.5-14.5)
[2024-12-26 03:15] LABS: HEMATOCRIT 20.7 % (42.0-52.0); WHITE BLOOD COUNT 27.3 X10'3 (4.5-11.0)
[2024-12-26 03:22] LABS: ALANINE AMINOTRANSFERASE 66 U/L (12-78); ALBUMIN 1.2 G/DL (3.4-5.0); ALBUMIN/GLOBULIN RATIO 0.4 (1.1-1.5); ALKALINE PHOSPHATASE 141 IU/L (46-116); ANION GAP 10 (8-16); ASPARTATE AMINO TRANSFERASE 39 U/L (10-37); BILIRUBIN,TOTAL 1.2 MG/DL (0.1-1.0); BLOOD UREA NITROGEN 65 MG/DL (7-18); BUN/CREATININE RATIO 23.4 (10.0-20.0); CALCIUM 7.1 MG/DL (8.5-10.1); CHLORIDE 97 MMOL/L (99-107); CREATININE 2.78 MG/DL (0.60-1.10); GLUCOSE 225 MG/DL (70-104); MAGNESIUM 1.7 MG/DL (1.5-2.4); PHOSPHORUS 1.5 MG/DL (2.3-4.5); POTASSIUM 3.6 MMOL/L (3.5-5.1); SODIUM 130 MMOL/L (135-145); TOTAL PROTEIN 3.9 G/DL (6.4-8.2); eCRCL 21 ML/MIN; eGFR 22 ML/MIN
[2024-12-26 03:32] LABS: NUCLEATED RED BLOOD CELLS 1 /100WBC (0-0); PLATELET ESTIMATE NORMAL; TOTAL CELLS COUNTED 100
[2024-12-26 03:33] LABS: ACANTHOCYTES 2+; ANISOCYTOSIS 1+
[2024-12-26 04:11] LABS: ABG BASE EXCESS -4.4 mmol/L (-2.0-3.0); ABG HCO3 19.2 mmol/L (21.0-28.0); ABG OXYGEN SATURATION 98.8 % (94.0-98.0); ABG PCO2 (T) 28.7 mmHg (35.0-48.0); ABG PH (T) 7.443 (7.350-7.450); ABG PO2 (T) 111.7 mmHg (83.0-108.0); FCOHb 1.6 % (0.5-1.5); FHHb 1.2 % (0.0-5.0); FMetHb 0.3 % (0.0-1.5); FO2Hb 96.9 % (94.0-98.0); MODE SIMV; PATIENT TEMPERATURE 36.9; PEEP 5 cm H2O; RESPIRATORY RATE 14 b/min; TIDAL VOLUME 500 mL; TOTAL HEMOGLOBIN 6.8 G/dl (13.5-17.5)
[2024-12-26] MEDS: insulin regular, human U-100 10ml vial - multi-dose SQ SCH (04:30)
[2024-12-26] MEDS: hydrALAZINE 20mg/ml inj. IV PRN (08:05)
[2024-12-26] MEDS: COMMUNICATION ORDER 1 EA MISC MC ONE (11:09)
[2024-12-26 14:15] LABS: BASOPHILS % (AUTO) 0.2 % (0-1); EOSINOPHILS # (AUTO) 0.2 X10'3 (0-0.9); EOSINOPHILS % (AUTO) 0.8 % (0-6); HEMATOCRIT 24.8 % (42.0-52.0); HEMOGLOBIN 8.4 g/dl (14.0-17.9); LYMPHOCYTES # (AUTO) 0.4 X10'3 (1.1-4.8); LYMPHOCYTES % (AUTO) 1.6 % (21-51); MEAN CORPUSCULAR HEMOGLOBIN 28.8 PG (27.0-31.0); MEAN CORPUSCULAR VOLUME 84.8 FL (78-98); MEAN PLATELET VOLUME 8.5 FL (7.4-10.4); MONOCYTES % (AUTO) 4.1 % (2-12); NEUTROPHILS # (AUTO) 23.4 X10'3 (1.8-7.7); NEUTROPHILS % (AUTO) 93.3 % (42-75); PLATELET COUNT 233 X10'3 (140-440); RED BLOOD COUNT 2.92 X10'6 (4.70-6.10); RED CELL DISTRIBUTION WIDTH 17.6 % (11.5-14.5)
[2024-12-26 14:19] LABS: WHITE BLOOD COUNT 25.1 X10'3 (4.5-11.0)
[2024-12-26] MEDS: propofol 1000mg/100ml bottle 100 ML IV SCH (16:55)
[2024-12-26] MEDS: furosemide 10 MG/1 ML 10ml inj IV ONE (17:50)
[2024-12-27] VITALS (52 sets, daily range): BP systolic 62–192; BP diastolic 20–62; PULSE 60–159; RESP 10–24; TEMP 96.9–97.3; O2SAT 96–99
[2024-12-27 03:03] LABS: EOSINOPHILS # (AUTO) 0.4 X10'3 (0-0.9); EOSINOPHILS % (AUTO) 1.3 % (0-6); LYMPHOCYTES # (AUTO) 0.5 X10'3 (1.1-4.8); MEAN PLATELET VOLUME 8.7 FL (7.4-10.4); MONOCYTES # (AUTO) 1.2 X10'3 (0-0.9); MONOCYTES % (AUTO) 4.4 % (2-12); NEUTROPHILS # (AUTO) 25.7 X10'3 (1.8-7.7)
[2024-12-27 03:04] LABS: BASOPHILS % (AUTO) 0.1 % (0-1); HEMATOCRIT 25.1 % (42.0-52.0); HEMOGLOBIN 8.6 g/dl (14.0-17.9); LYMPHOCYTES % (AUTO) 1.8 % (21-51); MEAN CORPUSCULAR HEMOGLOBIN 29.1 PG (27.0-31.0); MEAN CORPUSCULAR HGB CONC 34.1 g/dL (33.0-36.5); MEAN CORPUSCULAR VOLUME 85.4 FL (78-98); NEUTROPHILS % (AUTO) 92.4 % (42-75); PLATELET COUNT 252 X10'3 (140-440); RED BLOOD COUNT 2.94 X10'6 (4.70-6.10); RED CELL DISTRIBUTION WIDTH 17.6 % (11.5-14.5)
[2024-12-27 03:09] LABS: WHITE BLOOD COUNT 27.8 X10'3 (4.5-11.0)
[2024-12-27 03:18] LABS: ALANINE AMINOTRANSFERASE 60 U/L (12-78); ALBUMIN 1.2 G/DL (3.4-5.0); ALBUMIN/GLOBULIN RATIO 0.4 (1.1-1.5); ALKALINE PHOSPHATASE 124 IU/L (46-116); ANION GAP 12 (8-16); ASPARTATE AMINO TRANSFERASE 31 U/L (10-37); BILIRUBIN,TOTAL 1.1 MG/DL (0.1-1.0); BLOOD UREA NITROGEN 88 MG/DL (7-18); BUN/CREATININE RATIO 27.2 (10.0-20.0); CALCIUM 7.6 MG/DL (8.5-10.1); CHLORIDE 94 MMOL/L (99-107); CREATININE 3.24 MG/DL (0.60-1.10); GLUCOSE 115 MG/DL (70-104); MAGNESIUM 1.7 MG/DL (1.5-2.4); PHOSPHORUS 2.4 MG/DL (2.3-4.5); SODIUM 128 MMOL/L (135-145); TOTAL CARBON DIOXIDE 22.1 MMOL/L (24-32); TOTAL PROTEIN 4.1 G/DL (6.4-8.2); TRIGLYCERIDES 101 MG/DL (20-135); eCRCL 18 ML/MIN; eGFR 19 ML/MIN
[2024-12-27 03:21] LABS: POTASSIUM 2.9 MMOL/L (3.5-5.1)
[2024-12-27 03:21] LABS: ABG BASE EXCESS -3.9 mmol/L (-2.0-3.0); ABG HCO3 19.7 mmol/L (21.0-28.0); ABG OXYGEN SATURATION 98.7 % (94.0-98.0); ABG PCO2 (T) 29.4 mmHg (35.0-48.0); ABG PO2 (T) 114.4 mmHg (83.0-108.0); FCOHb 0.5 % (0.5-1.5); FHHb 1.3 % (0.0-5.0); FMetHb 0.3 % (0.0-1.5); FO2Hb 97.9 % (94.0-98.0); MODE SPONT; PATIENT TEMPERATURE 36.3; PEEP 5 cm H2O; TOTAL HEMOGLOBIN 9.2 G/dl (13.5-17.5)
[2024-12-27 03:40] LABS: ANISOCYTOSIS 1+; NUCLEATED RED BLOOD CELLS 1 /100WBC (0-0); PLATELET ESTIMATE NORMAL; TOTAL CELLS COUNTED 100
[2024-12-27] MEDS ORDERED: albumin (human) 25% 100ml IV 100 ML IV PRN (08:00)
[2024-12-27] MEDS ORDERED: NORepinephrine 8mg/ 250ml NS 250 ML IV PRN (08:35)
[2024-12-27] MEDS: EPOETIN ALFA-EPBX 20,000 UNIT/ML 1 ML MDV IV ONE (09:07)
[2024-12-27] MEDS: heparin 1,000 units/ml 10ml inj IV ONE (09:10)
[2024-12-27] MEDS: heparin 1,000 units/ml 10ml inj HE ONE ×2 (09:10→09:11)
[2024-12-27] MEDS: heparin 1,000unit/ml 10ml vial 10 ML IV ONE (09:10)
[2024-12-27] MEDS ORDERED: clopidogrel 75mg tablet JT SCH (09:31)
[2024-12-27] MEDS ORDERED: clopidogrel 75mg tablet PEG SCH (09:36)
[2024-12-27] MEDS ORDERED: acetaminophen 325mg/10.15ml oral unit dose solution JT PRN ×2 (10:51→10:52)
[2024-12-27] MEDS ORDERED: DEXTROSE 15 GM of carb/4 tabs (each vial/BOTTLE has 4 tablets) JT PRN ×2 (10:53)
[2024-12-27] MEDS ORDERED: Neutra Phos packet JT PRN (10:54)
[2024-12-27] MEDS: carvedilol 6.25mg tablet JT SCH (21:42)
[2024-12-27] MEDS: ZINC/COPPER/MANGANESE/SELENIUM 1 ML, chromic chloride inj. 10 MCG, MVI, adult No.4 with... IV SCH (21:45)
[2024-12-28] VITALS (22 sets, daily range): BP systolic 83–167; BP diastolic 28–43; PULSE 63–78; RESP 10–23; O2SAT 95–99
[2024-12-28 02:24] LABS: BASOPHILS # (AUTO) 0.1 X10'3 (0-0.2); HEMATOCRIT 28.9 % (42.0-52.0); MEAN PLATELET VOLUME 8.5 FL (7.4-10.4)
[2024-12-28 02:25] LABS: BASOPHILS % (AUTO) 0.4 % (0-1); EOSINOPHILS # (AUTO) 0.6 X10'3 (0-0.9); HEMOGLOBIN 9.9 g/dl (14.0-17.9); LYMPHOCYTES # (AUTO) 0.9 X10'3 (1.1-4.8); LYMPHOCYTES % (AUTO) 3.2 % (21-51); MEAN CORPUSCULAR HEMOGLOBIN 29.3 PG (27.0-31.0); MEAN CORPUSCULAR HGB CONC 34.1 g/dL (33.0-36.5); MONOCYTES # (AUTO) 1.2 X10'3 (0-0.9); MONOCYTES % (AUTO) 4.3 % (2-12); NEUTROPHILS # (AUTO) 26.3 X10'3 (1.8-7.7); NEUTROPHILS % (AUTO) 90.1 % (42-75); PLATELET COUNT 321 X10'3 (140-440); RED BLOOD COUNT 3.36 X10'6 (4.70-6.10)
[2024-12-28 02:29] LABS: WHITE BLOOD COUNT 29.1 X10'3 (4.5-11.0)
[2024-12-28 02:37] LABS: ALANINE AMINOTRANSFERASE 60 U/L (12-78); ALBUMIN 1.1 G/DL (3.4-5.0); ALBUMIN/GLOBULIN RATIO 0.4 (1.1-1.5); ALKALINE PHOSPHATASE 153 IU/L (46-116); ANION GAP 11 (8-16); ASPARTATE AMINO TRANSFERASE 42 U/L (10-37); BILIRUBIN,TOTAL 0.9 MG/DL (0.1-1.0); BLOOD UREA NITROGEN 66 MG/DL (7-18); BUN/CREATININE RATIO 26.2 (10.0-20.0); CALCIUM 7.5 MG/DL (8.5-10.1); CHLORIDE 98 MMOL/L (99-107); CREATININE 2.52 MG/DL (0.60-1.10); GLUCOSE 102 MG/DL (70-104); MAGNESIUM 1.7 MG/DL (1.5-2.4); POTASSIUM 3.1 MMOL/L (3.5-5.1); SODIUM 131 MMOL/L (135-145); TOTAL CARBON DIOXIDE 22.5 MMOL/L (24-32); TOTAL PROTEIN 4.2 G/DL (6.4-8.2); eCRCL 23 ML/MIN; eGFR 25 ML/MIN
[2024-12-28 02:50] LABS: NUCLEATED RED BLOOD CELLS 3 /100WBC (0-0); TOTAL CELLS COUNTED 100
[2024-12-28 03:52] LABS: ABG BASE EXCESS -4.1 mmol/L (-2.0-3.0); ABG HCO3 19.5 mmol/L (21.0-28.0); ABG OXYGEN SATURATION 97.5 % (94.0-98.0); ABG PCO2 (T) 30.5 mmHg (35.0-48.0); ABG PH (T) 7.423 (7.350-7.450); ABG PO2 (T) 93.2 mmHg (83.0-108.0); FCOHb 0.3 % (0.5-1.5); FHHb 2.5 % (0.0-5.0); FMetHb 0.3 % (0.0-1.5); FO2Hb 96.9 % (94.0-98.0); MODE SIMV; PATIENT TEMPERATURE 36.8; PEEP 5 cm H2O; RESPIRATORY RATE 14 b/min; TIDAL VOLUME 500 mL; TOTAL HEMOGLOBIN 10.5 G/dl (13.5-17.5)
[2024-12-28] MEDS: potassium Cl 40MEQ/1/2NS 520ml 520 ML IV ONE (07:02)
[2024-12-28] MEDS: clopidogrel 75mg tablet JT SCH (08:20)
[2024-12-28] MEDS ORDERED: morphine 10mg/ml inj. IV PRN (10:30)
[2024-12-28] MEDS ORDERED: morphine 10mg/0.5ml (conc. morphine) oral syringe PO PRN (10:30)
[2024-12-28] MEDS ORDERED: diazepam inj 5 MG/ML inj. IV PRN (10:30)
[2024-12-28] MEDS ORDERED: acetaminophen 325mg tablet PO PRN (10:30)
[2024-12-28] MEDS ORDERED: scopolamine 1MG/72H patch 1 PATCH PATCH.TD.3 TD PRN (10:30)
[2024-12-28] MEDS: diazepam inj 5 MG/ML inj. IV PRN (11:18)
[2024-12-28] MEDS: morphine 10mg/ml inj. IV PRN (11:18)
[2024-12-28] MEDS ORDERED: hyoscyamine 0.125mg TAB.SUBL SL PRN (11:30)
[2024-12-28] MEDS: hyoscyamine 0.125mg TAB.SUBL SL PRN (11:56)
[2024-12-29 07:00] VITALS: PULSE 76; RESP 8; O2SAT 93
[2024-12-29] MEDS ORDERED: acetylcysteine 200 MG/ml 4ml vial INH STA (07:59)
[2024-12-29 08:00] VITALS: RESP 8
[2024-12-29] MEDS ORDERED: ZINC/COPPER/MANGANESE/SELENIUM 1 ML, chromic chloride inj. 10 MCG in AMINO ACIDS 5 %/DE... IV SCH (09:00)
[2024-12-29 19:33] VITALS: RESP 10; O2SAT 87
[2024-12-30 03:04] VITALS: RESP 9
== END 2024-12-30 05:27 | DRG 853 ==
LOC: ER 12:17 → ED HOLD 17:11 → PCU 3S 23:29 → CICU 2S 12-13 22:33
PROVIDERS: ADMIT Internal Medicine; ATTEND Internal Medicine
PROC: BW211ZZ Computerized Tomography (CT Scan) of Abdomen and Pelvis using Low Osmolar Contrast (ICD-10-PCS; 2024-12-12)
PROC: 0DNW0ZZ Release Peritoneum, Open Approach (ICD-10-PCS; 2024-12-13)
PROC: 0D9930Z Drainage of Duodenum with Drainage Device, Percutaneous Approach (ICD-10-PCS; 2024-12-13)
PROC: 0D160ZA Bypass Stomach to Jejunum, Open Approach (ICD-10-PCS; principal; 2024-12-13 18:12)
PROC: BW211ZZ Computerized Tomography (CT Scan) of Abdomen and Pelvis using Low Osmolar Contrast (ICD-10-PCS; 2024-12-19)
PROC: CF141ZZ Planar Nuclear Medicine Imaging of Gallbladder using Technetium 99m (Tc-99m) (ICD-10-PCS; 2024-12-20)
PROC: 0FT40ZZ Resection of Gallbladder, Open Approach (ICD-10-PCS; 2024-12-21)
PROC: 0DQ90ZZ Repair Duodenum, Open Approach (ICD-10-PCS; 2024-12-21)
PROC: 0DH63UZ Insertion of Feeding Device into Stomach, Percutaneous Approach (ICD-10-PCS; 2024-12-21)
PROC: BW211ZZ Computerized Tomography (CT Scan) of Abdomen and Pelvis using Low Osmolar Contrast (ICD-10-PCS; 2024-12-21)
PROC: 0BH17EZ Insertion of Endotracheal Airway into Trachea, Via Natural or Artificial Opening (ICD-10-PCS; 2024-12-21)
PROC: 5A1955Z Respiratory Ventilation, Greater than 96 Consecutive Hours (ICD-10-PCS; 2024-12-21)
PROC: 30233N1 Transfusion of Nonautologous Red Blood Cells into Peripheral Vein, Percutaneous Approach (ICD-10-PCS; 2024-12-22)
PROC: 04753DZ Dilation of Superior Mesenteric Artery with Intraluminal Device, Percutaneous Approach (ICD-10-PCS; 2024-12-24)
PROC: B4101ZZ Fluoroscopy of Abdominal Aorta using Low Osmolar Contrast (ICD-10-PCS; 2024-12-24)
PROC: B41F1ZZ Fluoroscopy of Right Lower Extremity Arteries using Low Osmolar Contrast (ICD-10-PCS; 2024-12-24)
PROC: 02HV33Z Insertion of Infusion Device into Superior Vena Cava, Percutaneous Approach (ICD-10-PCS; 2024-12-24)
PROC: B548ZZA Ultrasonography of Superior Vena Cava, Guidance (ICD-10-PCS; 2024-12-24)
PROC: 5A1D70Z Performance of Urinary Filtration, Intermittent, Less than 6 Hours Per Day (ICD-10-PCS; 2024-12-24)
PROC: 02HV33Z Insertion of Infusion Device into Superior Vena Cava, Percutaneous Approach (ICD-10-PCS; 2024-12-24)
PROC: B548ZZA Ultrasonography of Superior Vena Cava, Guidance (ICD-10-PCS; 2024-12-24)
PROC: 5A1D70Z Performance of Urinary Filtration, Intermittent, Less than 6 Hours Per Day (ICD-10-PCS; 2024-12-25)
PROC: 5A1D70Z Performance of Urinary Filtration, Intermittent, Less than 6 Hours Per Day (ICD-10-PCS; 2024-12-27)
DX: A41.81 Sepsis due to Enterococcus (principal); J96.01 Acute respiratory failure with hypoxia; K26.5 Chronic or unspecified duodenal ulcer with perforation; N17.0 Acute kidney failure with tubular necrosis; K55.059 Acute (reversible) ischemia of intestine, part and extent unspecified; K65.9 Peritonitis, unspecified; K65.1 Peritoneal abscess; I16.1 Hypertensive emergency; N18.4 Chronic kidney disease, stage 4 (severe); I50.22 Chronic systolic (congestive) heart failure; E87.0 Hyperosmolality and hypernatremia; I13.0 Hypertensive heart and chronic kidney disease with heart failure and stage 1 through stage 4 chronic kidney disease, or unspecified chronic kidney disease; E11.52 Type 2 diabetes mellitus with diabetic peripheral angiopathy with gangrene; K55.1 Chronic vascular disorders of intestine; I31.39 Other pericardial effusion (noninflammatory); K63.0 Abscess of intestine; I42.9 Cardiomyopathy, unspecified; D69.6 Thrombocytopenia, unspecified; J44.9 Chronic obstructive pulmonary disease, unspecified; K82.A1 Gangrene of gallbladder in cholecystitis; K81.9 Cholecystitis, unspecified; G47.33 Obstructive sleep apnea (adult) (pediatric); D64.9 Anemia, unspecified; G47.00 Insomnia, unspecified; K66.0 Peritoneal adhesions (postprocedural) (postinfection); I35.0 Nonrheumatic aortic (valve) stenosis; E11.22 Type 2 diabetes mellitus with diabetic chronic kidney disease; Z86.718 Personal history of other venous thrombosis and embolism; Z79.01 Long term (current) use of anticoagulants; Z86.73 Personal history of transient ischemic attack (TIA), and cerebral infarction without residual deficits; Z88.5 Allergy status to narcotic agent; Z88.8 Allergy status to other drugs, medicaments and biological substances; Z79.82 Long term (current) use of aspirin; Z79.899 Other long term (current) drug therapy; I25.2 Old myocardial infarction; Z51.5 Encounter for palliative care; Z95.0 Presence of cardiac pacemaker; G70.00 Myasthenia gravis without (acute) exacerbation
CPT/HCPCS: 36245; 36415; 36430; 36569; 36600; 37236; 70450; 71045; 74176; 74177; 75625; 75726; 76937; 76942; 78226; 80048; 80053; 80069; 81001; 82436; 82570; 82803; 82810; 82948; 83605; 83690; 83735; 83930; 83935; 84100; 84132; 84133; 84134; 84145; 84300; 84478; 84484; 84540; 85007; 85008; 85018; 85025; 85027; 85045; 85610; 85651; 86706; 86885; 86900; 86901; 86920; 87040; 87070; 87075; 87077; 87081; 87186; 87340; 88304; 88305; 92508; 92616; 93005; 93880; 93970; 93975; 94002; 94003; 94640; 94668; 94760; 96361; 96374; 97110; 97161; 97162; 97530; 97535; 99285; A4333; A4340; A4421; A4615; A4618; A6196; A6212; A6213; A6250; A6253; A6258; A6266; A6407; A6446; A6449; A6590; A7000; A7015; A9537; C1725; C1751; C1752; C1758; C1760; C1769; C1876; C1894; E1594; G0257; G0269; G0378; J0131; J0360; J0694; J0696; J1644; J1720; J1815; J1938; J2020; J2150; J2248; J2250; J2270; J2274; J2405; J2470; J2543; J2704; J3010; J3360; J3372; J3475; J3480; J3490; J7030; J7040; J7060; J7070; J7120; J7121; J7512; P9016; P9045; P9047; Q4081; Q9963; Q9967